=== PATIENT | female | born 1960 | race Caucasian/White ===

== ENCOUNTER 2019-03-02 09:10 | Inpatient (IN) | payer SELFPAY ==
[2019-03-02] VITALS (9 sets, daily range): BP systolic 111–149; BP diastolic 73–99; PULSE 82–105; RESP 18–20; TEMP 36.7–37.2; O2SAT 92–98; BMI 26.6
--- NOTE | 2019-03-02 10:56 | W.ED.SKABFB ---
HPI - Skin/Abscess/Foreign Bdy General: Chief complaint: Skin/Abscess/Foreign Body Stated complaint: Mass on back Time Seen by Provider: 03/02/19 10:56 Source: patient and family Mode of arrival: ambulatory Limitations: no limitations History of Present Illness: HPI narrative: Patient is a 58-year-old female who presents to ED today with a complaint of a possible spider bite on her back that she noticed approximately 3 days ago; patient states lesion has not been draining; she reports chills but no fevers; she has no other complaints currently; patient reports history of diabetes, asthma, hypertension; she has not been on medications for these conditions in over 3 years stating she has no PCP and cannot afford medications Associated symptoms: Reports chills; Deny fever(s), nausea or vomiting Review of Systems Const: Reports: chills; Denies: fever, body aches, fatigue or night sweats Eyes: Denies: change in vision or blurry vision Card: Denies: chest pain, palpitations, irregular heart rhythm, lightheadedness, syncope or shortness of breath on exertion Resp: Denies: shortness of breath, productive cough or pain on inspiration GI: Denies: abdominal pain, nausea, vomiting, heartburn/indigestion or diarrhea : Denies: painful urination Musc: Denies: neck pain, back pain or joint pain Skin/Breast: Reports: new lesion; Denies: rash PFSH ED PFSH: Statuses (acute, chronic, etc) shown below reflect problem list status as previously entered and may not be historically accurate Social History Smoking and tobacco status: current every day smoker Physical Exam Const: COMMON NORMALS: no apparent distress, oriented x3 and alert GENERAL APPEARANCE: cooperative HENMT: COMMON NORMALS: normocephalic, head/scalp atraumatic, external ears normal, EAC's normal, TM's normal bilaterally and external nose normal HEAD & SCALP: normal to inspection, normocephalic and atraumatic FACE & SINUS: normal facial exam NOSE: external nose normal EXTERNAL EAR: Yes external ears normal EXTERNAL AUDITORY CANAL: EAC's normal TYMPANIC MEMBRANE: TM's normal bilaterally MOUTH: oral and palatal mucosa normal THROAT: posterior oropharynx normal, tonsils normal and uvula midline Eye: COMMON NORMALS: PERRL and EOMs intact bilaterally PUPIL: Yes PERRL Neck/C-Spine: COMMON NORMALS: full ROM, no lymphadenopathy, supple and no meningeal signs Resp: COMMON NORMALS: normal respiratory effort, no retractions, no use of accessory muscles and clear to auscultation bilaterally AUSCULTATION: clear to auscultation bilaterally Cardio: COMMON NORMALS: regular rhythm RATE: tachycardic RHYTHM: regular rhythm GI: COMMON NORMALS: normal to inspection, nondistended, normoactive bowel sounds, soft to palpation, non-tender, no hepatosplenomegaly and no masses PALPATION: Yes soft and Yes no hepatosplenomegaly Back/Pelvis: COMMON NORMALS: thoracic and lumbar spine normal to inspection Extremity: COMMON NORMALS: normal to inspection GENERAL: Yes normal exam except as noted Neuro: COMMON NORMALS: oriented x3 SENSORIUM/ORIENTATION: Yes alert MENINGEAL SIGNS: Yes no meningeal signs Skin: NARRATIVE SKIN EXAM: pt with large soft ball sized erythematous hemorrhagic indurated lesion to L mid back Course Vital Signs: Vital signs: Vital Signs Temperature 98.0 F 03/02/19 09:40 Pulse Rate 98 03/02/19 13:01 Respiratory Rate 20 H 03/02/19 13:01 Blood Pressure 140/99 03/02/19 13:01 Pulse Oximetry 96 03/02/19 13:01 MDM - Skin/Abscess/Foreign Bdy MDM Narrative: Medical decision making narrative: pt tachycardic with a white count of over 22,000; she has large abscess/infection to her back that is not amendable to I&D based on her ultrasound; she is an uncontrolled diabetic with sugars over 400; she will need to come into the hospital for IV abx and blood sugar control; Dr. Hudson evaluated pt and spoke to Dr. Ledesma for admit Lab Data: Labs: Lab Results 03/02/19 03/02/19 03/02/19 Range/Units 11:10 11:10 11:10 WBC 22.2 H (4.0-10.0) 10^3/ uL RBC 5.41 H (4.1-5.3) 10^6/u L Hgb 15.6 H (11.5-15.3) g/dL Hct 46.0 (37.0-47.0) % MCV 85.0 (81-99) fL MCH 28.8 (28.0-34.0) pg MCHC 33.9 (30.0-36.0) g/dL RDW 11.4 L (12.1-15.1) % Plt Count 296 (130-400) 10^3/c mm MPV 10.7 H (7.4-10.4) fL Neut % (Auto) 86.4 % Lymph % (Auto) 6.5 % Twiggs % (Auto) 5.7 % Eos % (Auto) 0.5 % Baso % (Auto) 0.4 % Neut # (Auto) 19.2 H (1.8-7.7) 10^3/u L Lymph # (Auto) 1.4 (0.8-4.8) 10^3/u L Twiggs # (Auto) 1.3 H (0.2-0.9) 10^3/u L Eos # (Auto) 0.1 (0.0-0.8) 10^3/u L Baso # (Auto) 0.1 (0.0-0.1) 10^3/u L Nucleated RBC % (a uto) 0 % Nucleated RBCs # 0.0 /100WBC Sodium 126 L (136-145) mmol/L Potassium 4.5 (3.5-5.1) mmol/L Chloride 86 L (98-107) mmol/L Carbon Dioxide 27 (22-29) mmol/L Anion Gap 17.5 (5-19) BUN 10 (6-20) mg/dL Creatinine 0.9 (0.5-0.9) mg/dL GFR Calculation 64.5 L (90-130) mL/min Glucose 487 H (74-109) mg/dL Lactate 1.4 (0.5-2.2) mmol/L Calcium 10.9 H (8.6-10.0) mg/Dl Total Bilirubin 0.6 (0.15-1.2) mg/dL AST 8 (0-32) U/L ALT 11 (0-33) U/L Alkaline Phosphata se 209 H (35-105) IU/L Total Protein 9.0 H (6.6-8.7) g/dL Albumin 4.0 (3.5-5.2) g/dL Globulin 5.0 H (1.3-4.6) g/dL Serum Ketones (Negative) 03/02/19 Range/Units 11:10 WBC (4.0-10.0) 10^3/ uL RBC (4.1-5.3) 10^6/u L Hgb (11.5-15.3) g/dL Hct (37.0-47.0) % MCV (81-99) fL MCH (28.0-34.0) pg MCHC (30.0-36.0) g/dL RDW (12.1-15.1) % Plt Count (130-400) 10^3/c mm MPV (7.4-10.4) fL Neut % (Auto) % Lymph % (Auto) % Twiggs % (Auto) % Eos % (Auto) % Baso % (Auto) % Neut # (Auto) (1.8-7.7) 10^3/u L Lymph # (Auto) (0.8-4.8) 10^3/u L Twiggs # (Auto) (0.2-0.9) 10^3/u L Eos # (Auto) (0.0-0.8) 10^3/u L Baso # (Auto) (0.0-0.1) 10^3/u L Nucleated RBC % (a uto) % Nucleated RBCs # /100WBC Sodium (136-145) mmol/L Potassium (3.5-5.1) mmol/L Chloride (98-107) mmol/L Carbon Dioxide (22-29) mmol/L Anion Gap (5-19) BUN (6-20) mg/dL Creatinine (0.5-0.9) mg/dL GFR Calculation (90-130) mL/min Glucose (74-109) mg/dL Lactate (0.5-2.2) mmol/L Calcium (8.6-10.0) mg/Dl Total Bilirubin (0.15-1.2) mg/dL AST (0-32) U/L ALT (0-33) U/L Alkaline Phosphata se (35-105) IU/L Total Protein (6.6-8.7) g/dL Albumin (3.5-5.2) g/dL Globulin (1.3-4.6) g/dL Serum Ketones Negative (Negative) Discharge Plan Discharge Patient Disposition: Admitted As Inpatient Clinical Impression: Abscess of back Diabetes mellitus Qualifiers: Diabetes mellitus type: type 2 Diabetes mellitus half-way insulin use: without keno terminal operator use Condition: Stable Referrals: Cristóbal Resendiz MD [Family Provider] - Coding Level of Care Code ED Director [employer] for Chg Fwd Exam Problem Focused
--- NOTE | 2019-03-02 11:04 | US_ITS ---
WS: [id number] Subcutaneous ultrasound of the back, 03/02/2019 Clinical Data: back abscess Comparison: None. Findings: Only normal subcutaneous tissue could be seen over the left back. There is no evidence of an abscess. No cyst or mass was seen. US/US soft tissue/extremity [id number] Impression: Normal subcutaneous ultrasound of the back.
[2019-03-02 11:16] LABS: Basophils # 0.1 10^3/uL (0.0-0.1); Basophils % 0.4 %; Eosinophils # 0.1 10^3/uL (0.0-0.8); Eosinophils % 0.5 %; Hemoglobin 15.6 g/dL (11.5-15.3); Lymphocytes # 1.4 10^3/uL (0.8-4.8); Lymphocytes % 6.5 %; Mean Corpuscular HGB Conc 33.9 g/dL (30.0-36.0); Mean Corpuscular Hemoglobin 28.8 pg (28.0-34.0); Mean Platelet Volume 10.7 fL (7.4-10.4); Monocytes # 1.3 10^3/uL (0.2-0.9); Monocytes % 5.7 %; Neutrophils # 19.2 10^3/uL (1.8-7.7); Neutrophils % 86.4 %; Nucleated Red Blood Cells % 0 %; Platelet Count 296 10^3/cmm (130-400); Red Blood Count 5.41 10^6/uL (4.1-5.3); Red Cell Distribution Width 11.4 % (12.1-15.1); White Blood Count 22.2 10^3/uL (4.0-10.0)
[2019-03-02 11:32] LABS: Lactate (Lactic Acid level) 1.4 mmol/L (0.5-2.2)
[2019-03-02 11:33] LABS: Alanine Aminotransferase 11 U/L (0-33); Alkaline Phosphatase 209 IU/L (35-105); Anion Gap 17.5 (5-19); Aspartate Amino Transferase 8 U/L (0-32); Blood Urea Nitrogen 10 mg/dL (6-20); Calcium 10.9 mg/Dl (8.6-10.0); Carbon Dioxide 27 mmol/L (22-29); Chloride 86 mmol/L (98-107); Glomerular Filtration Rate 64.5 mL/min (90-130); Glucose 487 mg/dL (74-109); Potassium 4.5 mmol/L (3.5-5.1); Sodium 126 mmol/L (136-145); Total Bilirubin 0.6 mg/dL (0.15-1.2)
[2019-03-02] MEDS: vancomycin 1,000 MG in sodium chloride 0.9% 250 ML 250 MG IV ×2 (12:07→17:57)
[2019-03-02 12:08] LABS: Ketone (Acetest) Serum Negative (Negative)
[2019-03-02] MEDS: sodium chloride 0.9% 1,000 ML 999 ML IV (12:08)
[2019-03-02] MEDS: clindamycin 900 MG/50 ML PREMIX 100 MG IV (14:14)
[2019-03-02] MEDS: insulin nph human 100 units/1 mL 8 UNIT SUBCUT (14:38)
--- NOTE | 2019-03-02 15:54 | PM.HP ---
Providers/Chief Complaint Admitting Physician: Magda Ledesma MD Primary Care Provider: None Chief Complaint: Mass on back History of Present Illness Yessi Murry is a 58 year old female that presented to the emergency department due to a lesion on the left side of her back. Patient reported that the lesion developed over the past 3 to 4 days. She stated that she has had increasing pain and redness since that time. She stated that she has been unable to lie flat on her back due to the discomfort. She stated that the area has grown in size over the past 1 to 2 days. Patient reports that she has not had any recent care, has only been applying topical antibiotic cream. She denies being on any oral antibiotics recently. Patient noted that she does have diabetes and hypertension but she has not seen a primary care provider in 2 years and has not been on any medication for diabetes in over 3 years. She stated that she has not checked her blood sugars at home, does not have a glucometer. Patient was seen and evaluated in the emergency department noted to have concern for cellulitis and abscess and admitted for further evaluation and treatment. She was also noted to have severe hyperglycemia without DKA. Review of Systems Const: Reports: fever; Denies: chills Eyes: Denies: change in vision ENMT: Denies: nasal congestion Card: Denies: chest pain, palpitations or edema Resp: Denies: shortness of breath, productive cough or coughing up blood GI: Denies: abdominal pain, nausea, vomiting, diarrhea, constipation, blood in stool or black tarry stool : Denies: painful urination or blood in urine Musc: Denies: extremity pain or muscle cramps Skin/Breast: Reports: new lesion; Denies: rash Neuro: Denies: headache or dizziness Psych: Denies: anxiety or depression Endo: Denies: excessive urination or hot flashes Mendel/Lymph: Denies: easy bruising or easy bleeding Medications/Allergies Home Medications Medication Instructions Recorded Confirmed Last Taken Type No Known Home Medications 03/02/19 03/02/19 Unknown History Allergies Allergy/AdvReac Type Severity Reaction Status Date / Time No Known Allergies Allergy Verified 03/02/19 09:45 PFSH Acute PFSH: Statuses (acute, chronic, etc) shown below reflect problem list status as previously entered and may not be historically accurate Medical History (Updated 03/02/19 @ 16:04 by Magda Ledesma DO) Asthma (Chronic) Diabetes mellitus (Chronic) Hypertension (Chronic) Tobacco abuse (Chronic) Surgical History (Updated 03/02/19 @ 15:57 by Magda Ledesma DO) H/O section (Acute) 3 History of appendectomy (Acute) Family History (Updated 03/02/19 @ 15:57 by Magda Ledesma DO) Mother CAD (coronary artery disease) Diabetes Father Brain aneurysm Social History (Updated 03/02/19 @ 15:58 by Magda Ledesma DO) Smoking and tobacco status: current every day smoker Alcohol intake: never Substance/Drug Use: never Vitals/I&O/Wt Last Vital Signs Temp 98.0 F 03/02/19 09:40 Pulse 89 03/02/19 15:05 Resp 20 H 03/02/19 15:05 BP 149/92 03/02/19 15:05 Pulse Ox 96 03/02/19 15:05 03/02/19 03/02/19 03/02/19 06:59 14:59 22:59 Intake Total 1050 / 1050 Balance 1050 / 1050 Weight last 48 hrs Weight 59.874 kg Physical Exam Const: COMMON NORMALS: oriented x3 and alert GENERAL APPEARANCE: cooperative ORIENTATION/CONSCIOUSNESS: Yes awake, Yes oriented to person, Yes oriented to place and Yes oriented to time HENMT: COMMON NORMALS: normocephalic and head/scalp atraumatic HEAD & SCALP: normocephalic and atraumatic Eye: COMMON NORMALS: PERRL PUPIL: Yes PERRL Neck/C-Spine: COMMON NORMALS: supple GENERAL: Yes normal visual inspection Resp: COMMON NORMALS: normal respiratory effort and clear to auscultation bilaterally EFFORT & INSPECTION: Yes able to speak in complete sentences AUSCULTATION: clear to auscultation bilaterally, no rhonchi and no wheezes Cardio: COMMON NORMALS: regular rate, regular rhythm and no murmurs RATE: regular rate RHYTHM: regular rhythm GI: COMMON NORMALS: soft to palpation and non-tender INSPECTION: No abdominal distension AUSCULTATION: Yes normoactive bowel sounds PALPATION: Yes soft : COMMON NORMALS: Yes no CVA tenderness BLADDER/KIDNEY EXAM: Yes no CVA tenderness Back/Pelvis: COMMON NORMALS: no CVA tenderness Extremity: COMMON NORMALS: no clubbing, cyanosis or edema and no calf tenderness Neuro: COMMON NORMALS: oriented x3, CN's II-XII intact bilaterally, moves all extremities and no focal motor deficits SENSORIUM/ORIENTATION: Yes alert, Yes oriented to person, Yes oriented to place and Yes oriented to time SPEECH: speech normal Psych: COMMON NORMALS: mental status grossly normal and cooperative Skin: SKIN IMAGES (FEMALE): 1. Abscess/Cellulitis Data Micro: Micro: Microbiology 03/02/19 11:52 Blood Culture - Pr eliminary Blood SPECIMEN [facility] 03/02/19 11:10 Blood Culture - Pr eliminary Blood SPECIMEN [facility] Imaging^: US: I personally reviewed and interpreted this imaging study as follows: My impression: No identifiable abscess Radiologist's impression: Normal subcutaneous ultrasound of the back. A&P Assessment and plan (1) Diabetes mellitus: Uncontrolled type 2 diabetes mellitus Noncompliant with medications due to cost Blood glucose of [address] on sliding scale insulin and give aggressive IV fluids We will start on Lantus 10 units at bedtime and adjust accordingly representative phlebotomy services consult for assistance on insulin and primary care provider to be set up Status: Chronic Qualifiers: Diabetes mellitus longterm insulin use: without longterm use Diabetes mellitus type: type 2 Code(s): E11.9 - Type 2 diabetes mellitus without complications (2) Abscess of back: Started on clindamycin and vancomycin, will continue at this time No history of MRSA, will check MRSA nasal swab We will monitor response to treatment and if no improvement patient will likely need debridement by general surgery. Will monitor overnight and discuss with surgery tomorrow if indicated. Ultrasound performed does not show any identifiable abscess Status: Acute Code(s): L02.212 - Cutaneous abscess of back [any part, except buttock] (3) Hypertension: Will start on lisinopril 5 mg daily Status: Chronic Code(s): I10 - Essential (primary) hypertension (4) Asthma: Without acute exacerbation Status: Chronic Code(s): J45.909 - Unspecified asthma, uncomplicated (5) Tobacco abuse: Strongly encourage cessation Nicotine patch as needed Status: Chronic Code(s): Z72.0 - Tobacco use Attestations Medical Necessity Statement*: Patient requires hospitalization due to cellulitis with uncontrolled diabetes mellitus and severe hyperglycemia, expected stay greater than 2 midnights Coding Level of Care Code Acute Accredited Legal Secretary for Chg Fwd Diagnoses Diabetes mellitus E11.9 Diabetes mellitus intermodal owner operator truck driver insulin use: without longterm use Diabetes mellitus type: type 2 Abscess of back L02.212 Hypertension I10 Asthma J45.909 Tobacco abuse Z72.0
[2019-03-02] MEDS: enoxaparin 40 mg/0.4 mL Syringe SUBCUT (17:06)
[2019-03-02] MEDS: lisinopril 5 mg Tablet PO (17:07)
[2019-03-02] MEDS: sodium chloride 0.9% 1,000 ML 75 ML IV (17:07)
[2019-03-02 17:31] LABS: Glucose Point of Care 296 mg/dL (70-110)
[2019-03-02 21:07] LABS: Estmated Average Glucose 272; Hemoglobin A1C 11.1 % (4.0-6.0)
[2019-03-02 21:23] LABS: Glucose Point of Care 349 mg/dL (70-110)
[2019-03-02] MEDS: clindamycin 600 MG/50 ML PREMIX 100 MG IV (21:27)
[2019-03-02] MEDS: insulin glargine 100 units/1 mL 10 UNIT SUBCUT (21:27)
[2019-03-03] VITALS (7 sets, daily range): BP systolic 94–117; BP diastolic 62–75; PULSE 91–109; RESP 18–20; TEMP 36.7–37.3; O2SAT 91–100
[2019-03-03] MEDS: sodium chloride 0.9% 1,000 ML 75 ML IV ×2 (05:44→18:02)
[2019-03-03] MEDS: clindamycin 600 MG/50 ML PREMIX 200 MG IV ×3 (05:45→20:23)
[2019-03-03 05:57] LABS: Basophils # 0.1 10^3/uL (0.0-0.1); Basophils % 0.3 %; Eosinophils # 0.2 10^3/uL (0.0-0.8); Eosinophils % 1.3 %; Hematocrit 39.2 % (37.0-47.0); Hemoglobin 13.4 g/dL (11.5-15.3); Lymphocytes # 1.6 10^3/uL (0.8-4.8); Lymphocytes % 8.4 %; Mean Corpuscular HGB Conc 34.2 g/dL (30.0-36.0); Mean Corpuscular Hemoglobin 28.8 pg (28.0-34.0); Mean Corpuscular Volume 84.1 fL (81-99); Mean Platelet Volume 10.6 fL (7.4-10.4); Monocytes # 1.3 10^3/uL (0.2-0.9); Monocytes % 6.7 %; Neutrophils # 15.9 10^3/uL (1.8-7.7); Neutrophils % 82.6 %; Nucleated Red Blood Cells % 0 %; Platelet Count 267 10^3/cmm (130-400); Red Blood Count 4.66 10^6/uL (4.1-5.3); Red Cell Distribution Width 11.3 % (12.1-15.1); White Blood Count 19.2 10^3/uL (4.0-10.0)
[2019-03-03 06:11] LABS: Blood Urea Nitrogen 8 mg/dL (6-20); Calcium 9.1 mg/Dl (8.6-10.0); Carbon Dioxide 24 mmol/L (22-29); Chloride 96 mmol/L (98-107); Glomerular Filtration Rate 127.2 mL/min (90-130); Glucose 284 mg/dL (74-109); Sodium 130 mmol/L (136-145)
[2019-03-03 06:26] LABS: Glucose Point of Care 275 mg/dL (70-110)
[2019-03-03] MEDS: nicotine 21 mg Patch 1 PATCH TRANSDERMA (08:31)
[2019-03-03] MEDS: sodium chloride 0.9% 1,000 ML 100 ML IV (10:31)
--- NOTE | 2019-03-03 10:39 | PM.PN ---
Subjective Subjective: Interval history: Patient awake sitting up in bed at time of exam this morning. She reports continued pain in the left side of her back. Reported scant amount of drainage overnight. Vitals/I&O/Wt Last Vital Signs Temp 98.4 F 03/03/19 07:57 Pulse 103 H 03/03/19 07:57 Resp 20 H 03/03/19 07:57 BP 94/62 03/03/19 07:57 Pulse Ox 97 03/03/19 07:57 03/02/19 03/03/19 03/03/19 22:59 06:59 14:59 Intake Total 1793.750 / 1793.750 826.25 / 2620.000 240 / 240 Output Total 200 / 200 Balance 1793.750 / 1793.750 626.25 / 2420.000 240 / 240 Weight last 48 hrs Weight 59.874 kg Physical Exam Const: COMMON NORMALS: oriented x3 and alert GENERAL APPEARANCE: cooperative ORIENTATION/CONSCIOUSNESS: Yes awake, Yes oriented to person, Yes oriented to place and Yes oriented to time HENMT: COMMON NORMALS: normocephalic and head/scalp atraumatic HEAD & SCALP: normocephalic and atraumatic Eye: COMMON NORMALS: PERRL PUPIL: Yes PERRL Neck/C-Spine: COMMON NORMALS: supple Resp: COMMON NORMALS: normal respiratory effort and clear to auscultation bilaterally EFFORT & INSPECTION: Yes able to speak in complete sentences AUSCULTATION: clear to auscultation bilaterally, no rhonchi and no wheezes Cardio: COMMON NORMALS: regular rate, regular rhythm and no murmurs RATE: regular rate RHYTHM: regular rhythm GI: COMMON NORMALS: soft to palpation and non-tender INSPECTION: No abdominal distension AUSCULTATION: Yes normoactive bowel sounds PALPATION: Yes soft Extremity: COMMON NORMALS: no clubbing, cyanosis or edema and no calf tenderness Neuro: COMMON NORMALS: oriented x3, CN's II-XII intact bilaterally, moves all extremities and no focal motor deficits SENSORIUM/ORIENTATION: Yes alert, Yes oriented to person, Yes oriented to place and Yes oriented to time SPEECH: speech normal Psych: COMMON NORMALS: mental status grossly normal and cooperative Skin: NARRATIVE SKIN EXAM: Area of induration and erythema over the left flank with central pustule, no appreciable drainage upon palpation Data Micro: Micro: Microbiology 03/02/19 11:52 Blood Culture - Pr eliminary Blood Gram positive c occi 03/02/19 11:10 Blood Culture - Pr eliminary Blood SPECIMEN [facility] A&P Assessment and plan (1) Diabetes mellitus: Poorly controlled with blood glucose light greater than 400 on admission. Started on Lantus and will increase to 15 units today, continue on sliding scale insulin. A1c of 11.1 technical services manager consultation to get patient set up with a primary care provider Status: Chronic Qualifiers: Diabetes mellitus local intermodal truck driver insulin use: without local intermodal truck driver use Diabetes mellitus type: type 2 Diabetes mellitus complication status: with hyperglycemia Qualified Code(s): E11.65 - Type 2 diabetes mellitus with hyperglycemia Code(s): E11.9 - Type 2 diabetes mellitus without complications (2) Sepsis: Sepsis secondary to abscess and cellulitis of the left back. As evident by tachycardia, leukocytosis with a white blood cell count of 22,000 on admission Continue with IV fluids and IV antibiotics Status: Acute Qualifiers: Sepsis type: sepsis due to unspecified organism Code(s): A41.9 - Sepsis, unspecified organism (3) Abscess of back: Started on clindamycin and vancomycin, will continue at this time Discussed with general surgeon, Dr. Varela today. Appreciate recommendations and assistance in patient's care. Plan for incision and drainage of abscess today Status: Acute Code(s): L02.212 - Cutaneous abscess of back [any part, except buttock] (4) Hypertension: Decrease lisinopril to 2.5 mg daily Status: Chronic Qualifiers: Hypertension type: essential hypertension Qualified Code(s): I10 - Essential (primary) hypertension Code(s): I10 - Essential (primary) hypertension (5) Asthma: Without acute exacerbation Status: Chronic Qualifiers: Asthma severity: unspecified severity Code(s): J45.909 - Unspecified asthma, uncomplicated (6) Tobacco abuse: Strongly encourage cessation Nicotine patch as needed Status: Chronic Code(s): Z72.0 - Tobacco use Additional A&P Information Additional A&P Information: Positive blood culture returned today with 1 of 4 bottles gram-positive cocci in clusters, repeat blood cultures ordered and pending. Continue on current antibiotics. Attestations Medical Necessity Statement*: Patient requires further hospitalization due to poorly controlled diabetes, sepsis secondary to abscess on the left back and positive blood culture Coding Level of Care Code Acute Outsole Paraffiner for g Fwd Diagnoses Diabetes mellitus E11.65 Diabetes mellitus fci insulin use: without local intermodal truck driver use Diabetes mellitus type: type 2 Diabetes mellitus complication status: with hyperglycemia Sepsis A41.9 Sepsis type: sepsis due to unspecified organism Abscess of back L02.212 Hypertension I10 Hypertension type: essential hypertension Asthma J45.909 Asthma severity: unspecified severity Tobacco abuse Z72.0
[2019-03-03 11:43] LABS: Glucose Point of Care 249 mg/dL (70-110)
--- NOTE | 2019-03-03 16:44 | PM.CONSULT ---
Providers/Reason For Consult Consulting Physican/Specialty*: General Surgery Jason Varela MD Reason for Consult*: Cellulitis/abscess on back. Attending Physician: Magda Ledesma MD History of Present Illness History of Present Illness Yessi Murry is a 58 year old female who came into the hospital yesterday with a 4-day history of n worsening inflammatory area on her back. She says the first day she noticed this was last Saturday. It has been getting larger and more uncomfortable ever since. She says she has had both fevers and chills at home. She came to the hospital and an ultrasound revealed no obvious underlying abscess and so she has been on intravenous antibiotics. She does report that she had a boil in the past in her right axilla that drained spontaneously, but she has never had any other abscesses. Of note, the patient does have a history of diabetes and has not been on medication for several years. She does not check her blood sugars at home, either. She presented with a blood sugar near 500. Review of Systems Const: Reports: fever and chills Eyes: Denies: change in vision Card: Denies: chest pain Resp: Denies: shortness of breath GI: Denies: abdominal pain : Denies: difficulty urinating Musc: Reports: back pain (Associated with area of inflammation) Skin/Breast: Reports: redness (Cellulitis/abscess on back) Neuro: Reports: numbness in extremities (Feet secondary to diabetes) Psych: Denies: depression Mendel/Lymph: Denies: easy bleeding All/Imm: Reports: seasonal allergies Meds/Allergies Home Medications and Allergies Home Medications Medication Instructions Recorded Confirmed Type No Known Home Medications 03/02/19 03/02/19 History Allergies Allergy/AdvReac Type Severity Reaction Status Date / Time No Known Allergies Allergy Verified 03/02/19 09:45 Current Medications Current Medications Generic Name Dose Route Start Last Admin Trade Name Freq PRN Reason Stop Dose Admin Enoxaparin Sodium 40 mg 03/02/19 16:00 03/03/19 15:10 Lovenox SUBCUT Not Given Q24H DEEPTI Sodium Chloride 1,000 mls @ 100 mls/hr 03/02/19 14:15 03/03/19 10:31 Sodium Chloride 0.9% IV 100 mls/hr .Q10H DEEPTI Administration Vancomycin HCl 1,000 mg/ 250 mls @ 250 mls/hr 03/02/19 18:00 03/03/19 05:45 Sodium Chloride IV Infused Q24H DEEPTI Infusion Protocol Clindamycin HCl/Dextrose 600 mg in 50 mls @ 100 mls/hr 03/02/19 21:00 03/03/19 12:11 Cleocin IV 200 mls/hr Q8H DEEPTI Administration Protocol Sodium Chloride 1,000 mls @ 75 mls/hr 03/02/19 16:00 03/03/19 05:45 Sodium Chloride 0.9% IV 0 mls/hr .[id number] DEEPTI Infusion Insulin Aspart 0 unit 03/02/19 18:00 03/03/19 12:11 Novolog SUBCUT 6 unit TIDWM DEEPTI Administration Protocol Insulin Aspart 0 unit 03/02/19 21:00 03/02/19 21:27 Novolog SUBCUT 5 unit BEDTIME DEEPTI Administration Protocol Nicotine 1 patch 03/03/19 09:00 03/03/19 08:31 Nicoderm 21 Mg Patch TRANSDERMA 1 patch DAILY DEEPTI Administration PFSH Acute PFSH: Statuses (acute, chronic, etc) shown below reflect problem list status as previously entered and may not be historically accurate Medical History Asthma (Chronic) Diabetes mellitus (Chronic) Hypertension (Chronic) Tobacco abuse (Chronic) Surgical History (Updated 03/03/19 @ 16:50 by Jason Varela MD) H/O section (Acute) x 3 History of appendectomy (Acute) Family History (Updated 03/02/19 @ 15:57 by Magda Ledesma DO) Mother CAD (coronary artery disease) Diabetes Father Brain aneurysm Social History (Updated 03/03/19 @ 16:54 by Jason Varela MD) Smoking and tobacco status: current every day smoker cigarettes Alcohol intake: never Substance/Drug Use: never Vitals/I&O/Wt Last Vital Signs Temp 98.6 F 03/03/19 15:45 Pulse 93 03/03/19 15:45 Resp 18 03/03/19 15:45 BP 117/75 03/03/19 15:45 Pulse Ox 100 03/03/19 15:45 01/07/20 01/07/20 01/07/20 06:59 14:59 22:59 Intake Total 876.25 / 2670.000 240 / 240 Output Total 200 / 200 300 / 300 200 / 500 Balance 676.25 / 2470.000 -60 / -60 -200 / -260 Weight last 48 hrs Weight 132 lb Physical Exam Narrative: EXAM NARRATIVE: The patient was encountered in her hospital room. She is laying on her right side, and is in no acute distress. The pupils seem equal. No carotid bruits are heard. The lungs are clear. The heart is regular. The abdomen is mildly obese but is soft. The patient has a somewhat transverse, oval-shaped area of erythema and swelling on the mid aspect of her back to the left side. There are several small pustules overlying the skin but no ongoing drainage. There is a magic marker hans around the area that is at the edge of the erythema. The extremities reveal no edema. Neurologically the patient appears to be grossly intact. Data Micro: Micro: Microbiology 03/02/19 17:57 MRSA Culture - Fin al Nose 03/02/19 11:10 Blood Culture - Pr eliminary Blood NEGATIVE TO AMELIE E 03/03/19 10:42 Blood Culture - Pr eliminary Blood SPECIMEN [facility] UMESH 03/03/19 10:42 Blood Culture - Pr eliminary Blood SPECIMEN [facility] UMESH 03/02/19 11:52 Blood Culture - Pr eliminary Blood Gram positive c occi Other Data: Other data: Soft tissue ultrasound impression: Normal subcutaneous ultrasound of the back. A&P Additional A&P Information Additional A&P Information: Abscess on back. Despite the fact the ultrasound did not show an obvious collection of fluid, I do suspect the patient has a fluid collection underneath this area on exam. I discussed the situation with the patient in detail. She actually already ate a little bit of lunch today before nursing took her food away. I told her at this point, I would probably allow her to eat dinner and then we will plan on doing an incision and drainage procedure tomorrow morning. She is in agreement. Consult Attestations Medical Necessity Statement: See admitting service's notation. Coding Level of Care Code Acute Manager Basketball for Garrett Anderson
[2019-03-03 17:10] LABS: Glucose Point of Care 270 mg/dL (70-110)
[2019-03-03] MEDS: vancomycin 1,000 MG in sodium chloride 0.9% 250 ML 250 MG IV (18:01)
[2019-03-03] MEDS: acetaminophen 325 mg Tablet 650 MG PO (20:23)
[2019-03-03 21:18] LABS: Glucose Point of Care 306 mg/dL (70-110)
[2019-03-03] MEDS: insulin glargine 100 units/1 mL 15 UNIT SUBCUT (21:32)
[2019-03-04] VITALS (14 sets, daily range): BP systolic 109–166; BP diastolic 68–85; PULSE 84–99; RESP 16–20; TEMP 36.2–37.2; O2SAT 94–98
[2019-03-04] MEDS: clindamycin 600 MG/50 ML PREMIX 200 MG IV (05:29)
[2019-03-04] MEDS: sodium chloride 0.9% 1,000 ML 30 ML IV ×2 (05:30→07:35)
[2019-03-04 05:57] LABS: Basophils # 0.1 10^3/uL (0.0-0.1); Basophils % 0.3 %; Eosinophils # 0.5 10^3/uL (0.0-0.8); Eosinophils % 2.5 %; Hematocrit 37.7 % (37.0-47.0); Hemoglobin 12.7 g/dL (11.5-15.3); Lymphocytes # 1.5 10^3/uL (0.8-4.8); Lymphocytes % 8.5 %; Mean Corpuscular HGB Conc 33.7 g/dL (30.0-36.0); Mean Corpuscular Hemoglobin 28.9 pg (28.0-34.0); Mean Corpuscular Volume 85.9 fL (81-99); Mean Platelet Volume 10.4 fL (7.4-10.4); Monocytes # 1.3 10^3/uL (0.2-0.9); Neutrophils # 14.2 10^3/uL (1.8-7.7); Neutrophils % 80.1 %; Nucleated Red Blood Cells % 0 %; Platelet Count 252 10^3/cmm (130-400); Red Blood Count 4.39 10^6/uL (4.1-5.3); Red Cell Distribution Width 11.4 % (12.1-15.1); White Blood Count 17.8 10^3/uL (4.0-10.0)
--- NOTE | 2019-03-04 06:44 | PM.PN ---
Subjective Subjective: Interval history: The patient reports her abscess busted last night and drained some material. She says it is still uncomfortable. Vitals/I&O/Wt Last Vital Signs Temp 99.0 F 03/04/19 04:00 Pulse 89 03/04/19 04:00 Resp 18 03/04/19 04:00 BP 117/71 03/04/19 04:00 Pulse Ox 96 03/04/19 04:00 03/03/19 03/03/19 03/04/19 14:59 22:59 06:59 Intake Total 290 / 290 706.25 / 996.25 Output Total 300 / 300 820 / 1120 350 / 1470 Balance -10 / -10 -113.75 / -123.75 -350 / -473.75 Weight last 48 hrs Weight 127 lb 7 oz Weight 132 lb Physical Exam Narrative: EXAM NARRATIVE: The area of the abscess does have some thick purulent material on the outside. It is still very indurated and swollen. It would appear that this is not at all completely evacuated. Data Micro: Micro: Microbiology 03/02/19 17:57 MRSA Culture - Fin al Nose 03/02/19 11:10 Blood Culture - Pr eliminary Blood NEGATIVE TO AMELIE E 03/03/19 10:42 Blood Culture - Pr eliminary Blood SPECIMEN [facility] UMESH 03/03/19 10:42 Blood Culture - Pr eliminary Blood SPECIMEN [facility] UM[facility] 03/02/19 11:52 Blood Culture - Pr eliminary Blood Gram positive c occi A&P Additional A&P Information Additional A&P Information: Abscess on back. Despite the fact the ultrasound did not show an obvious collection of fluid, it is clear that there is a fluid collection under this that is not completely evacuated. To OR this morning. Attestations Medical Necessity Statement*: See admitting service's notation. Coding Level of Care Code Acute Development Specialist for Garrett Anderson
[2019-03-04 06:56] LABS: Glucose Point of Care 237 mg/dL (70-110)
--- NOTE | 2019-03-04 07:28 | ANES.PREANES ---
Pre-Anesthetic Assessment Pre-Anesthetic Assessment: Height/Weight: Height 1.5 m Weight 57.805 kg Temp Pulse Resp BP Pulse Ox 97.1 F L 85 18 133/70 94 03/04/19 07:21 03/04/19 07:21 03/04/19 04:00 03/04/19 07:21 03/04/19 07:21 Proposed Procedure: Operation Date: 03/04/19 07:40 Proposed Procedures p Incision And Drainage OF ABSCESS ON BACK(Not Applicable) - Jason Varela MD Meds/Allergies Current Medications: Current Medications Generic Name Dose Route Start Last Admin Trade Name Freq PRN Reason Stop Dose Admin Acetaminophen 650 mg 03/02/19 15:49 03/03/19 20:23 Tylenol PO 650 mg Q6H PRN Administration Mild/Mod Pain Or Temp >/= 101 Enoxaparin Sodium 40 mg 03/02/19 16:00 03/03/19 15:10 Lovenox SUBCUT Not Given Q24H DEEPTI Vancomycin HCl 1,0 00 mg/ 250 mls @ 250 mls /hr 03/02/19 18:00 03/03/19 18:01 Sodium Chloride IV 250 mls/hr Q24H DEEPTI Administration Protocol Clindamycin HCl/De xtrose 600 mg in 50 mls @ 100 mls/hr 03/02/19 21:00 03/04/19 05:29 Cleocin IV 200 mls/hr Q8H DEEPTI Administration Protocol Sodium Chloride 1,000 mls @ 75 ml s/hr 03/02/19 16:00 03/03/19 21:54 Sodium Chloride 0.9% IV 75 mls/hr .[id number] DEEPTI Infusion Sodium Chloride 1,000 mls @ 30 ml s/hr 03/04/19 06:00 03/04/19 07:12 Sodium Chloride 0.9% IV Infused .Q24H DEEPTI Infusion Insulin Aspart 0 unit 03/02/19 18:00 03/03/19 18:01 Novolog SUBCUT 10 unit TIDWM DEEPTI Administration Protocol Insulin Aspart 0 unit 03/02/19 21:00 03/03/19 21:31 Novolog SUBCUT 5 unit BEDTIME DEEPTI Administration Protocol Insulin Glargine 15 unit 03/03/19 21:00 03/03/19 21:32 Lantus SUBCUT 15 unit BEDTIME DEEPTI Administration Nicotine 1 patch 03/03/19 09:00 03/03/19 08:31 Nicoderm 21 Mg P atch TRANSDERMA 1 patch DAILY DEEPTI Administration PFSH Anesthesia PFSH: Medical History Asthma (Chronic) Diabetes mellitus (Chronic) Hypertension (Chronic) Tobacco abuse (Chronic) Surgical History (Updated 03/03/19 @ 16:50 by Jason Varela MD) H/O section (Acute) x 3 History of appendectomy (Acute) Family History (Updated 03/02/19 @ 15:57 by Magda Ledesma DO) Mother CAD (coronary artery disease) Diabetes Father Brain aneurysm Social History (Updated 03/03/19 @ 16:54 by Jason Vraela MD) Smoking and tobacco status: current every day smoker cigarettes Alcohol intake: never Substance/Drug Use: never Data Anesthesia Labs: Other Labs: Laboratory Results - last 48 hr 03/02/19 03/02/19 03/02/19 11:10 11:10 11:10 WBC 22.2 H RBC 5.41 H Hgb 15.6 H Hct 46.0 MCV 85.0 MCH 28.8 MCHC 33.9 RDW 11.4 L Plt Count 296 MPV 10.7 H Neut % (Auto) 86.4 Lymph % (Auto) 6.5 [place] % (Auto) 5.7 Eos % (Auto) 0.5 Baso % (Auto) 0.4 Neut # (Auto) 19.2 H Lymph # (Auto) 1.4 [place] # (Auto) 1.3 H Eos # (Auto) 0.1 Baso # (Auto) 0.1 Nucleated RBC % (a uto) 0 Nucleated RBCs # 0.0 Sodium 126 L Potassium 4.5 Chloride 86 L Carbon Dioxide 27 Anion Gap 17.5 BUN 10 Creatinine 0.9 GFR Calculation 64.5 L Glucose 487 H POC Glucose Estimat Average Gl ucose Hemoglobin A1c Lactate 1.4 Calcium 10.9 H Total Bilirubin 0.6 AST 8 ALT 11 Alkaline Phosphata se 209 H Total Protein 9.0 H Albumin 4.0 Globulin 5.0 H Serum Ketones 03/02/19 03/02/19 03/02/19 11:10 11:10 17:27 WBC RBC Hgb Hct MCV MCH MCHC RDW Plt Count MPV Neut % (Auto) Lymph % (Auto) [place] % (Auto) Eos % (Auto) Baso % (Auto) Neut # (Auto) Lymph # (Auto) [place] # (Auto) Eos # (Auto) Baso # (Auto) Nucleated RBC % (a uto) Nucleated RBCs # Sodium Potassium Chloride Carbon Dioxide Anion Gap BUN Creatinine GFR Calculation Glucose POC Glucose 296 Estimat Average Gl ucose 272 Hemoglobin A1c 11.1 H Lactate Calcium Total Bilirubin AST ALT Alkaline Phosphata se Total Protein Albumin Globulin Serum Ketones Negative 03/02/19 03/03/19 03/03/19 21:20 05:30 05:30 WBC 19.2 H RBC 4.66 Hgb 13.4 Hct 39.2 MCV 84.1 MCH 28.8 MCHC 34.2 RDW 11.3 L Plt Count 267 MPV 10.6 H Neut % (Auto) 82.6 Lymph % (Auto) 8.4 [place] % (Auto) 6.7 Eos % (Auto) 1.3 Baso % (Auto) 0.3 Neut # (Auto) 15.9 H Lymph # (Auto) 1.6 [place] # (Auto) 1.3 H Eos # (Auto) 0.2 Baso # (Auto) 0.1 Nucleated RBC % (a uto) 0 Nucleated RBCs # 0.0 Sodium 130 L Potassium 4.0 Chloride 96 L Carbon Dioxide 24 Anion Gap 14.0 BUN 8 Creatinine 0.5 GFR Calculation 127.2 Glucose 284 H POC Glucose 349 Estimat Average Gl ucose Hemoglobin A1c Lactate Calcium 9.1 Total Bilirubin AST ALT Alkaline Phosphata se Total Protein Albumin Globulin Serum Ketones 03/03/19 03/03/19 03/03/19 06:22 11:38 16:54 WBC RBC Hgb Hct MCV MCH MCHC RDW Plt Count MPV Neut % (Auto) Lymph % (Auto) [place] % (Auto) Eos % (Auto) Baso % (Auto) Neut # (Auto) Lymph # (Auto) [place] # (Auto) Eos # (Auto) Baso # (Auto) Nucleated RBC % (a uto) Nucleated RBCs # Sodium Potassium Chloride Carbon Dioxide Anion Gap BUN Creatinine GFR Calculation Glucose POC Glucose 275 249 270 Estimat Average Gl ucose Hemoglobin A1c Lactate Calcium Total Bilirubin AST ALT Alkaline Phosphata se Total Protein Albumin Globulin Serum Ketones 03/03/19 03/04/1920 21:07 05:33 06:47 WBC 17.8 H RBC 4.39 Hgb 12.7 Hct 37.7 MCV 85.9 MCH 28.9 MCHC 33.7 RDW 11.4 L Plt Count 252 MPV 10.4 Neut % (Auto) 80.1 Lymph % (Auto) 8.5 [place] % (Auto) 7.0 Eos % (Auto) 2.5 Baso % (Auto) 0.3 Neut # (Auto) 14.2 H Lymph # (Auto) 1.5 [place] # (Auto) 1.3 H Eos # (Auto) 0.5 Baso # (Auto) 0.1 Nucleated RBC % (a uto) 0 Nucleated RBCs # 0.0 Sodium Potassium Chloride Carbon Dioxide Anion Gap BUN Creatinine GFR Calculation Glucose POC Glucose 306 237 Estimat Average Gl ucose Hemoglobin A1c Lactate Calcium Total Bilirubin AST ALT Alkaline Phosphata se Total Protein Albumin Globulin Serum Ketones Micro: Micro: Microbiology 03/02/19 17:57 MRSA Culture - Fin al Nose 03/02/19 11:10 Blood Culture - Pr eliminary Blood NEGATIVE TO AMELIE E 03/03/19 10:42 Blood Culture - Pr eliminary Blood SPECIMEN [facility] UMESH 03/03/19 10:42 Blood Culture - Pr eliminary Blood SPECIMEN [facility] UMESH 03/02/19 11:52 Blood Culture - Pr eliminary Blood Gram positive c occi Cardiac Studies: No Data to Display
--- NOTE | 2019-03-04 07:33 | ANES.PREANES ---
Pre-Anesthetic Assessment Pre-Anesthetic Assessment: Height/Weight: Height 1.5 m Weight 57.805 kg Temp Pulse Resp BP Pulse Ox 97.1 F L 85 18 133/70 94 03/04/19 07:21 03/04/19 07:21 03/04/19 04:00 03/04/19 07:21 03/04/19 07:21 Proposed Procedure: Operation Date: 03/04/19 07:40 Proposed Procedures p Incision And Drainage OF ABSCESS ON BACK(Not Applicable) - Jason Varela MD Was Beta Cody taken within 24 hours: Yes Last Intake: 00:00 Social: Social History: Tobacco Exam: Pre-Anes Outpt Exam: alert, oriented x 3, clear to auscultation bilaterally and regular rate & rhythm Airway: Submandibular: WNL Cervical ROM: WNL MP: 2 Dentition: Chipped Additional comments: SEVERAL MISSING TEETH History/ROS: No significant history except as noted and No significant complaints Pulmonary: Pulmonary: Asthma, Cough, LE and SOB CV/HEM: CV/HEM: HTN : : None reported Hepatic: Hepatic: None reported GI: GI: GERD Metabolic: Metabolic: DM Musc/skel: Musc/skel: Lower Back Pain and OA/DJD Neuropsych: Neuropsych: Anxiety Anesthetic Plan: ASA status: III Anesthesia: MAC Risk of > 500 ml blood loss (7ml/kg in children): No Meds/Allergies Current Medications: Current Medications Generic Name Dose Route Start Last Admin Trade Name Freq PRN Reason Stop Dose Admin Acetaminophen 650 mg 03/02/19 15:49 03/03/19 20:23 Tylenol PO 650 mg Q6H PRN Administration Mild/Mod Pain Or Temp >/= 101 Enoxaparin Sodium 40 mg 03/02/19 16:00 03/03/19 15:10 Lovenox SUBCUT Not Given Q24H DEEPTI Vancomycin HCl 1,0 00 mg/ 250 mls @ 250 mls /hr 03/02/19 18:00 03/03/19 18:01 Sodium Chloride IV 250 mls/hr Q24H DEEPTI Administration Protocol Clindamycin HCl/De xtrose 600 mg in 50 mls @ 100 mls/hr 03/02/19 21:00 03/04/19 05:29 Cleocin IV 200 mls/hr Q8H DEEPTI Administration Protocol Sodium Chloride 1,000 mls @ 75 ml s/hr 03/02/19 16:00 03/03/19 21:54 Sodium Chloride 0.9% IV 75 mls/hr .[id number] DEEPTI Infusion Sodium Chloride 1,000 mls @ 30 ml s/hr 03/04/19 06:00 03/04/19 07:12 Sodium Chloride 0.9% IV Infused .Q24H DEEPTI Infusion Insulin Aspart 0 unit 03/02/19 18:00 03/03/19 18:01 Novolog SUBCUT 10 unit TIDWM DEEPTI Administration Protocol Insulin Aspart 0 unit 03/02/19 21:00 03/03/19 21:31 Novolog SUBCUT 5 unit BEDTIME DEEPTI Administration Protocol Insulin Glargine 15 unit 03/03/19 21:00 03/03/19 21:32 Lantus SUBCUT 15 unit BEDTIME DEEPTI Administration Nicotine 1 patch 03/03/19 09:00 03/03/19 08:31 Nicoderm 21 Mg P atch TRANSDERMA 1 patch DAILY DEEPTI Administration PFSH Anesthesia PFSH: Medical History Asthma (Chronic) Diabetes mellitus (Chronic) Hypertension (Chronic) Tobacco abuse (Chronic) Surgical History (Updated 03/03/19 @ 16:50 by Jason Varela MD) H/O section (Acute) x 3 History of appendectomy (Acute) Family History (Updated 03/02/19 @ 15:57 by Magda Ledesma DO) Mother CAD (coronary artery disease) Diabetes Father Brain aneurysm Social History (Updated 03/03/19 @ 16:54 by Jason Varela MD) Smoking and tobacco status: current every day smoker cigarettes Alcohol intake: never Substance/Drug Use: never Data Anesthesia Labs: Other Labs: Laboratory Results - last 48 hr 03/02/19 03/02/19 03/02/19 11:10 11:10 11:10 WBC 22.2 H RBC 5.41 H Hgb 15.6 H Hct 46.0 MCV 85.0 MCH 28.8 MCHC 33.9 RDW 11.4 L Plt Count 296 MPV 10.7 H Neut % (Auto) 86.4 Lymph % (Auto) 6.5 [place] % (Auto) 5.7 Eos % (Auto) 0.5 Baso % (Auto) 0.4 Neut # (Auto) 19.2 H Lymph # (Auto) 1.4 [place] # (Auto) 1.3 H Eos # (Auto) 0.1 Baso # (Auto) 0.1 Nucleated RBC % (a uto) 0 Nucleated RBCs # 0.0 Sodium 126 L Potassium 4.5 Chloride 86 L Carbon Dioxide 27 Anion Gap 17.5 BUN 10 Creatinine 0.9 GFR Calculation 64.5 L Glucose 487 H POC Glucose Estimat Average Gl ucose Hemoglobin A1c Lactate 1.4 Calcium 10.9 H Total Bilirubin 0.6 AST 8 ALT 11 Alkaline Phosphata se 209 H Total Protein 9.0 H Albumin 4.0 Globulin 5.0 H Serum Ketones 03/02/19 03/02/19 03/02/19 11:10 11:10 17:27 WBC RBC Hgb Hct MCV MCH MCHC RDW Plt Count MPV Neut % (Auto) Lymph % (Auto) [place] % (Auto) Eos % (Auto) Baso % (Auto) Neut # (Auto) Lymph # (Auto) [place] # (Auto) Eos # (Auto) Baso # (Auto) Nucleated RBC % (a uto) Nucleated RBCs # Sodium Potassium Chloride Carbon Dioxide Anion Gap BUN Creatinine GFR Calculation Glucose POC Glucose 296 Estimat Average Gl ucose 272 Hemoglobin A1c 11.1 H Lactate Calcium Total Bilirubin AST ALT Alkaline Phosphata se Total Protein Albumin Globulin Serum Ketones Negative 03/02/19 03/03/19 03/03/19 21:20 05:30 05:30 WBC 19.2 H RBC 4.66 Hgb 13.4 Hct 39.2 MCV 84.1 MCH 28.8 MCHC 34.2 RDW 11.3 L Plt Count 267 MPV 10.6 H Neut % (Auto) 82.6 Lymph % (Auto) 8.4 [place] % (Auto) 6.7 Eos % (Auto) 1.3 Baso % (Auto) 0.3 Neut # (Auto) 15.9 H Lymph # (Auto) 1.6 [place] # (Auto) 1.3 H Eos # (Auto) 0.2 Baso # (Auto) 0.1 Nucleated RBC % (a uto) 0 Nucleated RBCs # 0.0 Sodium 130 L Potassium 4.0 Chloride 96 L Carbon Dioxide 24 Anion Gap 14.0 BUN 8 Creatinine 0.5 GFR Calculation 127.2 Glucose 284 H POC Glucose 349 Estimat Average Gl ucose Hemoglobin A1c Lactate Calcium 9.1 Total Bilirubin AST ALT Alkaline Phosphata se Total Protein Albumin Globulin Serum Ketones 03/03/19 03/03/19 03/03/19 06:22 11:38 16:54 WBC RBC Hgb Hct MCV MCH MCHC RDW Plt Count MPV Neut % (Auto) Lymph % (Auto) [place] % (Auto) Eos % (Auto) Baso % (Auto) Neut # (Auto) Lymph # (Auto) [place] # (Auto) Eos # (Auto) Baso # (Auto) Nucleated RBC % (a uto) Nucleated RBCs # Sodium Potassium Chloride Carbon Dioxide Anion Gap BUN Creatinine GFR Calculation Glucose POC Glucose 275 249 270 Estimat Average Gl ucose Hemoglobin A1c Lactate Calcium Total Bilirubin AST ALT Alkaline Phosphata se Total Protein Albumin Globulin Serum Ketones 03/03/19 03/04/19 03/04/19 21:07 05:33 06:47 WBC 17.8 H RBC 4.39 Hgb 12.7 Hct 37.7 MCV 85.9 MCH 28.9 MCHC 33.7 RDW 11.4 L Plt Count 252 MPV 10.4 Neut % (Auto) 80.1 Lymph % (Auto) 8.5 [place] % (Auto) 7.0 Eos % (Auto) 2.5 Baso % (Auto) 0.3 Neut # (Auto) 14.2 H Lymph # (Auto) 1.5 [place] # (Auto) 1.3 H Eos # (Auto) 0.5 Baso # (Auto) 0.1 Nucleated RBC % (a uto) 0 Nucleated RBCs # 0.0 Sodium Potassium Chloride Carbon Dioxide Anion Gap BUN Creatinine GFR Calculation Glucose POC Glucose 306 237 Estimat Average Gl ucose Hemoglobin A1c Lactate Calcium Total Bilirubin AST ALT Alkaline Phosphata se Total Protein Albumin Globulin Serum Ketones Micro: Micro: Microbiology 03/02/19 17:57 MRSA Culture - Fin al Nose 03/02/19 11:10 Blood Culture - Pr eliminary Blood NEGATIVE TO AMELIE E 03/03/19 10:42 Blood Culture - Pr eliminary Blood SPECIMEN [facility] UMESH 03/03/19 10:42 Blood Culture - Pr eliminary Blood SPECIMEN [facility] UMESH 03/02/19 11:52 Blood Culture - Pr eliminary Blood Gram positive c occi Cardiac Studies: No Data to Display
--- NOTE | 2019-03-04 08:12 | P.OP_ITS ---
Operative Report Post-Operative Note: Date of procedure: 03/04/19 Preop Diagnosis: Abscess on back. Post-op Findings: Same. Procedure Done: Incision and drainage of abscess on back. Specimens removed/disposition: Aerobic and anaerobic cultures. Surgeon: Jason Varela Anesthesia: MAC Estimated blood loss (mL): 5 Complications: None. Condition: stable Disposition: same day (prior to being returned to the medical/surgical floor) Operative Report: Procedure: The patient was brought to the operating room and was placed in a right lateral decubitus position on the operating room table. A monitored anesthetic was induced. The back was prepped and draped in a sterile fashion. A combination of 1% lidocaine with 1 to 100,000 parts epinephrine and 0.5% bupivacaine was used for local anesthesia throughout the procedure. A slightly oblique incision was carried out over the oblong abscess cavity in the left mid back region. Immediately, purulent material was obtained and both aerobic and anaerobic cultures were sent. The abscess cavity was suctioned out and revealed approximately a 3 cm fairly deep abscess cavity with a little wider abscess cavity more superficially. The tissue was bluntly debrided with a 4 x 4 and then the wound was extensively irrigated with saline. The wound was eventually packed with and a secondary dressing was applied. Wet-to-dry gauze the patient was taken to the recovery area in stable condition postoperatively. Coding Level of Care Code Acute Principal Systems Engineer for Garrett Anderson
--- NOTE | 2019-03-04 10:43 | PM.DCS ---
Discharge Providers Date of Admission: 03/02/19 14:23 Date of Discharge: 03/04/19 Attending Provider at Admission: Magda Ledesma MD Attending Provider at Discharge: Magda Ledesma MD Diagnoses at Discharge Discharge Diagnosis (1) Diabetes mellitus: Status: Chronic Problem details: Patient has been non-compliant with medications due to cost. Discharged with Levemir 25 units daily and metformin to increase slowly due to GI side effects Qualifiers: Diabetes mellitus complication status: with hyperglycemia Diabetes mellitus penitentiary insulin use: without moth exterminator use Diabetes mellitus type: type 2 Qualified Code(s): E11.65 - Type 2 diabetes mellitus with hyperglycemia (2) Sepsis: Status: Acute Qualifiers: Sepsis type: sepsis due to unspecified organism (3) Abscess of back: Status: Acute Problem details: Status post incision and drainage on 03/04/2019 (4) Hypertension: Status: Chronic Problem details: Blood pressure within good range at this time, recommend outpatient follow-up and started on Lisinopril 2.5mg daily Qualifiers: Hypertension type: essential hypertension Qualified Code(s): I10 - Essential (primary) hypertension (5) Asthma: Status: Chronic Problem details: Without acute exacerbation, strongly encourage smoking cessation Qualifiers: Asthma severity: unspecified severity (6) Tobacco abuse: Status: Chronic Problem details: Strongly encourage smoking cessation Reason for Visit Reason for Visit: Reason For Visit: Mass on back Hospital Course Hospital Course: Patient was seen and evaluated in the emergency department due to a lesion on her back. Patient reported the lesion had been progressive over the past 3 to 4 days and increase in pain in size. Patient was noted to have large abscess on her back with surrounding cellulitis and admitted for further evaluation and treatment. She was noted to have sepsis with a white blood cell count of 22,000 and tachycardia. Patient was given IV fluids and IV antibiotics and ultimately general surgery was consulted for incision and drainage of abscess. Patient was taken to the OR on 03/04/2019 and had incision and drainage of 3 cm abscess on the left back without any further complications. After the procedure she reported that she was doing well and denied any concerns. She denied any chest pain or shortness of breath and was requesting discharge to home. Discussed with patient the recommendation to have close follow-up with primary care provider and also discussed recommendation for home insulin for better glucose control, she verbalized understanding and agreed with plan. Discharge Summary: Discharge to home with close follow-up with primary care provider in 3 to 5 days. Recommended to keep a blood glucose log to present to her primary care provider at that time Discharged home with clindamycin, oral antibiotic Continue with the dressing changes as recommended by surgery Physical Exam Const: COMMON NORMALS: oriented x3 and alert GENERAL APPEARANCE: cooperative ORIENTATION/CONSCIOUSNESS: Yes awake, Yes oriented to person, Yes oriented to place and Yes oriented to time HENMT: COMMON NORMALS: normocephalic and head/scalp atraumatic HEAD & SCALP: normocephalic and atraumatic Eye: COMMON NORMALS: PERRL PUPIL: Yes PERRL Neck/C-Spine: COMMON NORMALS: supple GENERAL: Yes normal visual inspection Resp: COMMON NORMALS: normal respiratory effort and clear to auscultation bilaterally EFFORT & INSPECTION: Yes able to speak in complete sentences AUSCULTATION: clear to auscultation bilaterally, no rhonchi and no wheezes Cardio: COMMON NORMALS: regular rate, regular rhythm and no murmurs RATE: regular rate RHYTHM: regular rhythm GI: COMMON NORMALS: soft to palpation and non-tender INSPECTION: No abdominal distension AUSCULTATION: Yes normoactive bowel sounds PALPATION: Yes soft Extremity: COMMON NORMALS: no clubbing, cyanosis or edema and no calf tenderness Neuro: COMMON NORMALS: oriented x3, CN's II-XII intact bilaterally, moves all extremities and no focal motor deficits SENSORIUM/ORIENTATION: Yes alert, Yes oriented to person, Yes oriented to place and Yes oriented to time SPEECH: speech normal Psych: COMMON NORMALS: mental status grossly normal and cooperative Skin: NARRATIVE SKIN EXAM: lesion on L back s/p I&D with improvement of erythema Discharge Data Data Completed and Pending: Completed Studies During Hospitalization Category Date Time Status US soft tissue/ex tremity 70990 Urge nt Ultrasound 03/02/19 11:04 Completed Pending at discharge Category Date Time Status Abscess Culture a nd Gram Stain Rout ine Lab 03/04/19 08:06 Received Anaerobic Culture Routine Lab 03/04/19 08:06 Received Blood Culture Sta t Lab 03/02/19 11:52 Results Blood Culture Sta t Lab 03/03/19 10:42 Results Vancomycin Trough Routine Lab 03/04/19 17:00 Ordered Labs from last 24 hours 03/04/19 03/04/19 03/03/19 06:47 05:33 21:07 WBC 17.8 H RBC 4.39 Hgb 12.7 Hct 37.7 MCV 85.9 MCH 28.9 MCHC 33.7 RDW 11.4 L Plt Count 252 MPV 10.4 Neut % (Auto) 80.1 Lymph % (Auto) 8.5 Moca % (Auto) 7.0 Eos % (Auto) 2.5 Baso % (Auto) 0.3 Neut # (Auto) 14.2 H Lymph # (Auto) 1.5 Moca # (Auto) 1.3 H Eos # (Auto) 0.5 Baso # (Auto) 0.1 Nucleated RBC % (a uto) 0 Nucleated RBCs # 0.0 POC Glucose 237 306 03/03/19 03/03/19 16:54 11:38 WBC RBC Hgb Hct MCV MCH MCHC RDW Plt Count MPV Neut % (Auto) Lymph % (Auto) Moca % (Auto) Eos % (Auto) Baso % (Auto) Neut # (Auto) Lymph # (Auto) Moca # (Auto) Eos # (Auto) Baso # (Auto) Nucleated RBC % (a uto) Nucleated RBCs # POC Glucose 270 249 Vitals: Last Vital Signs Temp 98.4 F 03/04/19 10:00 Pulse 88 03/04/19 10:00 Resp 20 H 03/04/19 10:00 BP 124/82 03/04/19 10:00 Pulse Ox 98 03/04/19 10:00 Discharge Plan Discharge Patient Disposition: Home, Self-Care Condition: Stable Prescriptions: New lisinopril 2.5 mg Tablet 2.5 mg PO DAILY 30 Days Qty: 30 RF: 0 acetaminophen 325 mg Tablet 650 mg PO Q6H PRN (Reason: Mild/Mod Pain Or Temp >/= 101) 5 Days Qty: 20 RF: 0 clindamycin HCl 300 mg capsule 300 mg PO TID 7 Days Qty: 21 RF: 0 metformin 500 mg tablet 500 mg PO BID Qty: 60 RF: 0 Levemir FlexTouch U-100 Insuln 100 unit/mL (3 mL) insulin pen 25 unit SUBCUT QPM Qty: 15 RF: 0 No Action No Known Home Medications RF: 0 Discharge Orders: Discharge Order (Routine); Ordered 03/04/19 Ordered By: Magda Ledesma Discharge Diet: Diabetic Discharge Activity: Increase activity as tolerated Patient Instructions: Acute Wound Care (DC) Activity Restrictions/Additional Instructions: Follow-up with primary care provider in 3 to 5 days to establish care and for care of diabetes mellitus Started on lisinopril 2.5 mg daily Started on Levemir 25 units at bedtime, continue to monitor your blood sugars and keep a glucose log to present to your primary care provider for further adjustment on your insulin requirements as needed Call your physician or present to the ER for any acute illness or concern Continue with twice daily dressing changes, keep area clean and dry. 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
[2019-03-04] MEDS: lisinopril 2.5 mg Tablet PO (11:48)
[2019-03-04] MEDS: nicotine 21 mg Patch 1 PATCH TRANSDERMA (11:48)
[2019-03-04 12:01] LABS: Glucose Point of Care 249 mg/dL (70-110)
--- NOTE | 2019-03-04 13:26 | PM.PACU ---
PACU note Post-Anesthesia Exam: awake Disposition: back to floor
--- NOTE | 2019-03-04 14:43 | PC.CHAP ---
Pastoral Care Encounter/Spiritual Assessment Type of Contact [] Declined wordpress developer visit [] Patient/Family/Request visit [] Outpatient visit [] Follow-up visit [] Physician referral [] Code/Alert [x] Routine visit [] Staff referral [] Actively dying [] Patient sleeping [] Family support [] [] Out of room [] Palliative care [] [] Receiving care in room [] Pre-surgical visit [] Trauma [] Long length of stay [] ICU visit [] Other: Relational/Emotional Strength [x] Patient feels connected with others/family/visitors/staff [] Distress [] Loneliness/isolation [] Abandonment Spirituality of Patient [x] Person of Shalini [] Attends Caodaism of their Shalini [x] Believes in Prayer [] Reads Bible or Anabaptism materials [] There are Spiritual issues to be addressed Shell Worker Interventions [x Prayer [x] Active listening [x Non-anxious presence [x] Spiritual/emotional support [] Crisis/trauma care [] Spiritual counseling [] Bereavement support [] Provided bereavement packet [] Provided Bible/devotional materials [] Provided toy/stuffed animal, coloring book to patient or family member [x] Completed spiritual assessment [] Provided Communion [] Anointing/[place] [] Salvation [] Other: Impact on Illness or Injury [] Angry [] Fearful [x] Anxious [] Often cries [] Exhaustion [] Unable to work [] Unable to attend buddhism [] Unable to walk/stand [] Unable to read [] Unable to drive [] Unable to eat/drink [] Unable to sleep [] Unable to be with family [] Other: Summary Time spent with patient
--- NOTE | 2019-03-04 14:51 | PC.CHAP ---
Pastoral Care Encounter/Spiritual Assessment Type of Contact [] Declined disability counselor visit [] Patient/Family/Request visit [] Outpatient visit [] Follow-up visit [] Physician referral [] Code/Alert [x] Routine visit [] Staff referral [] Actively dying [] Patient sleeping [] Family support [] [] Out of room [] Palliative care [] [] Receiving care in room [] Pre-surgical visit [] Trauma [] Long length of stay [] ICU visit [] Other: Relational/Emotional Strength [] Patient feels connected with others/family/visitors/staff [] Distress [] Loneliness/isolation [] Abandonment Spirituality of Patient [] Person of Shalini [] Attends Christian of their Shalini []x Believes in Prayer [] Reads Bible or Mormonism materials [] There are Spiritual issues to be addressed Customer Service Trainer Interventions [x] Prayer [x] Active listening [x] Non-anxious presence [x] Spiritual/emotional support [] Crisis/trauma care [] Spiritual counseling [] Bereavement support [] Provided bereavement packet [] Provided Bible/devotional materials [] Provided toy/stuffed animal, coloring book to patient or family member x] Completed spiritual assessment [] Provided Communion [] Anointing/[place] [] Salvation [] Other: Impact on Illness or Injury [] Angry [] Fearful [x] Anxious [] Often cries [] Exhaustion [] Unable to work [] Unable to attend temple [] Unable to walk/stand [] Unable to read [] Unable to drive [] Unable to eat/drink [] Unable to sleep [] Unable to be with family [] Other: Summary ready to go back to work Time spent with patient 6 min
--- NOTE | 2019-03-05 14:29 | ANE.PACU ---
 Inpatient post-anesthesia follow up: Airway intact: Yes Vital signs: Temperature 98.6 F Pulse Rate [Left R adial] 89 Pulse Rate 93 Respiratory Rate 20 Blood Pressure [Le ft Arm] 124/84 Blood Pressure 149/92 Pulse Oximetry 97 Oxygen Delivery Me thod [ Room Air Current Rate & Del mando] Oxygen Delivery Me thod Room Air Oxygen Flow Rate [ Current Rate 0 & Delivery] Fraction of Inspir ed Oxygen Hydration adequate: Yes Nausea and vomiting: No Mental status: Baseline
== END 2019-03-04 15:00 | disposition home or self-care (01) | DRG 854 ==
LOC: ER 13:43 → MEDSURG 14:26
PROVIDERS: Physician Assistant; Surgery; Admitting Provider Family Medicine; Emergency Provider Emergency Medicine; Family Provider Internal Medicine; Visit Provider Family Medicine
PROC: 0JB70ZZ Excision of Back Subcutaneous Tissue and Fascia, Open Approach (ICD-10-PCS; principal; 2019-03-04 07:30)
DX: A41.9 Sepsis, unspecified organism (principal); L02.212 Cutaneous abscess of back [any part, except buttock and flank]; I10 Essential (primary) hypertension; E11.65 Type 2 diabetes mellitus with hyperglycemia; Z79.4 Long term (current) use of insulin; F17.210 Nicotine dependence, cigarettes, uncomplicated; Z91.120 Patient's intentional underdosing of medication regimen due to financial hardship; J45.909 Unspecified asthma, uncomplicated
CPT/HCPCS: 36415; 36416; 76882; 80048; 80053; 82009; 82962; 83036; 83605; 85025; 87040; 87070; 87075; 87077; 87186; 87205; 87641; 96372; 99221; 99282; J1650; J1815; J2001; J2704; J3370; J3490; J7030; J7050

== ENCOUNTER → 2019-09-30 14:36 | Outpatient (BNVA) | payer SELFPAY | PROVIDERS: Family Provider Internal Medicine; Visit Provider Nurse Practitioner Family | DX: Z11.59 Encounter for screening for other viral diseases (principal) | CPT/HCPCS: 87635 ==

== ENCOUNTER 2020-01-31 08:07 | Emergency (ER) | payer SELFPAY ==
[2020-01-31 08:12] VITALS: BP 147/84; PULSE 104; RESP 18; TEMP 36.8; O2SAT 97; BMI 25.4
--- NOTE | 2020-01-31 08:19 | XRR_ITS ---
PROCEDURE INFORMATION: Exam: XR Abdomen, 1 View Exam date and time: 01/31/2020 8:42 AM Age: 59 years old Clinical indication: Abdominal pain; Other: Oneil flank pain TECHNIQUE: Imaging protocol: XR of the abdomen. Views: Frontal supine view of the abdomen. 1 View. COMPARISON: No relevant prior studies available. FINDINGS: Gastrointestinal tract: There is prominence of the amount of stool but otherwise the bowel gas pattern is unremarkable.. No bowel dilation. Intraperitoneal space: There is an ovoid calcification in the right upper quadrant which may be a porcelain gallbladder. Bones/joints: Unremarkable. XR/XR KUB [id number] IMPRESSION: 1. 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 2. Normal bowel gas pattern.
[2020-01-31 08:20] LABS: Glucose Point of Care 331 mg/dL (70-110)
--- NOTE | 2020-01-31 08:22 | XRR_ITS ---
PROCEDURE INFORMATION: Exam: XR Chest, 1 View Exam date and time: 01/31/2020 8:42 AM Age: 59 years old Clinical indication: Pain; Other: Below ribs; Additional info: Syncope TECHNIQUE: Imaging protocol: XR of the chest Views: 1 view. COMPARISON: CR Chest 2 views* [id number] 02/25/2017 12:51 PM FINDINGS: Lungs: Unremarkable. No consolidation. Pleural space: Unremarkable. No pleural effusion. No pneumothorax. Heart/Mediastinum: Unremarkable. No cardiomegaly. Bones/joints: Unremarkable. XR/XR chest 1V portable [id number] IMPRESSION: No acute findings.
--- NOTE | 2020-01-31 08:23 | ED_ITS ---
HPI - General Adult General: Chief complaint: General Medical Stated complaint: BILATERAL FLANK PAIN Time Seen by Provider: 01/31/20 08:11 Source: patient Mode of arrival: ambulatory Limitations: no limitations History of Present Illness: HPI narrative: Pleasant 59-year-old female patient presents to the emergency department with 2-day onset of bilateral flank pain. States was at [facility] yesterday at the time of onset. Reports cough, temperature 99.0 yesterday, not elevated today. She reports chills, denies nausea vomiting diarrhea. Denies exposure to Covid, previous negative Covid test completed October 2019. She is employed at [employer]. She denies heavy lifting, falls or trauma. Denies weakness of the extremities, reports daily intake of naproxen. States no longer taking insulin due to financial constraints. She does not check blood sugar at home. Onset (ago): day(s) (2) Location: back, left and right Radiation: flank Severity: moderate Severity scale (1-10): 5 Quality: aching and dull Pain Consistency: constant Exacerbating factors: movement Associated symptoms: Reports cough and fevers/chills; Deny chest pain, diaphoresis, dyspnea, headache(s), nausea, rash, palpitations, syncope or vomiting Treatments prior to arrival: NSAID Review of Systems General: Reports: 10 or more systems reviewed and unremarkable except in HPI and below Const: Denies: fever(s), chills or diaphoresis Eyes: Denies: blurry vision or eye redness ENMT: Denies: throat pain, hoarseness, dental pain, disequilibrium, nasal discharge, nasal congestion or post nasal drip Card: Denies: chest pain, palpitations, irregular heart rhythm, edema, swelling of feet/ankles, syncope, dyspnea on exertion or orthopnea Resp: Reports: non-productive cough; Denies: dyspnea, productive cough, wheezing or chest congestion GI: Denies: abdominal pain, nausea, vomiting, dysphagia, diarrhea or constipation : Denies: difficulty voiding or dysuria Musc: Reports: back pain; Denies: neck pain, extremity swelling, muscle cramps or muscle weakness Skin/Breast: Denies: rash or pruritus Neuro: Denies: headache(s), weakness in extremities or behavioral changes Psych: Denies: anxiety, depression or change in appetite Mendel/Lymph: Denies: easy bruising PFSH ED PFSH: Medical History (Updated 01/31/20 @ 11:54 by OMAYRA Mg) Asthma Without acute exacerbation, strongly encourage smoking cessation Diabetes mellitus Patient has been non-compliant with medications due to cost. Discharged with Levemir 25 units daily and metformin to increase slowly due to GI side effects Hypertension Blood pressure within good range at this time, recommend outpatient follow-up and started on Lisinopril 2.5mg daily Tobacco abuse Strongly encourage smoking cessation Surgical History (Updated 03/03/19 @ 16:50 by Jason Varela MD) H/O section x 3 History of appendectomy Family History (Updated 03/02/19 @ 15:57 by Magda Ledesma DO) Mother CAD (coronary artery disease) Diabetes Father Brain aneurysm Social History (Updated 03/03/19 @ 16:54 by Jason Varela MD) Smoking and tobacco status: current every day smoker cigarettes [ Other cigarette details: 1 pack/day for 20 years ] Alcohol intake: never Physical Exam Const: COMMON NORMALS: no acute distress, patient oriented x3, healthy appearing, alert and well nourished EXAM LIMITATIONS: no altered mental status GENERAL APPEARANCE: cooperative, comfortable, well kempt and well hydrated NUTRITIONAL APPEARANCE: overweight ORIENTATION/CONSCIOUSNESS: Yes awake, Yes oriented to person, Yes oriented to place and Yes oriented to time HENMT: COMMON NORMALS: normocephalic, EAC's normal, Normal external nose present and moist oral mucous membranes HEAD & SCALP: normocephalic FACE & SINUS: normal facial exam, sinuses nontender and face symmetric NOSE: Normal external nose present EXTERNAL AUDITORY CANAL: EAC's normal MOUTH: Normal oral and palatal mucosa present THROAT: posterior oropharynx normal Eye: COMMON NORMALS: Equal, round and reactive pupils present and EOMs intact bilaterally GENERAL EYE: appearance normal, both eyes and all related structures PUPIL: Yes Equal, round and reactive pupils present Neck/C-Spine: COMMON NORMALS: full ROM and no lymphadenopathy GENERAL: Yes normal visual inspection and Yes trachea midline CERVICAL SPINE: Yes cervical ROM normal Lymph: LYMPHATIC: no lymphadenopathy noted Chest: COMMONS NORMALS: normal inspection of the chest and normal palpation of entire chest wall CHEST: No localized rib tenderness with anteroposterior compression Resp: COMMON NORMALS: normal respiratory effort, No retractions, No use of accessory muscles and clear to auscultation bilaterally EFFORT & INSPECTION: Yes able to speak in complete sentences, Yes symmetric chest movement, No decreased respiratory effort and No paradoxical thoraco-abdominal movements AUSCULTATION: clear to auscultation bilaterally and lung sounds not diminished Cardio: COMMON NORMALS: regular rate, regular rhythm, S1 normal heart sound present, S2 normal heart sound present and Peripheral pulses 2+ throughout RATE: regular rate RHYTHM: regular rhythm HEART SOUNDS: S1 normal heart sound present and S2 normal heart sound present PERIPHERAL PULSES: Peripheral pulses 2+ throughout GI: COMMON NORMALS: Normal to inspection, nondistended, normoactive bowel sounds present, Soft to palpation and non-tender INSPECTION: Yes normal to inspection, No abdominal wall ecchymosis, No Abdominal wall edema, No abdominal distension and Yes central obesity AUSCULTATION: Yes normoactive bowel sounds PALPATION: Yes Soft to palpation and No Firmness to palpation present (GI) : EXTERNAL FEMALE EXAM: No Inguinal lymphadenopathy, Yes erythema (left labia), Yes externally tender (left labia), Yes external swelling (left labia) and No External ecchymosis (female) Back/Pelvis: COMMON NORMALS: thoracic and lumbar spine normal to inspection, no thoracic nor lumbar tenderness, thoraco-lumbar ROM normal and straight leg raise negative bilaterally GENERAL BACK: Yes CVA tenderness CVA tenderness: bilateral THORACIC SPINE/UPPER BACK: No paraspinal muscle tenderness and No p araspinal muscle spasm LUMBAR SPINE/LOWER BACK: No paraspinal muscle tenderness and No paraspinal muscle spasm Extremity: COMMON NORMALS: normal to inspection and capillary refill normal GENERAL: Yes normal exam except as noted Neuro: COMMON NORMALS: patient oriented x3 and no focal motor deficits SENSORIUM/ORIENTATION: Yes alert, Yes oriented to person, Yes oriented to place and Yes oriented to time SPEECH: speech normal GAIT: Yes Normal gait present MOTOR EXAM: 5/5 motor strength present throughout Psych: COMMON NORMALS: mental status grossly normal, Normal thought process present and cooperative APPEARANCE: Yes well kempt ACTIVITY/MOTOR BEHAVIOR: Yes appropriate eye contact THOUGHT PROCESS: Normal thought process present Skin: COMMON NORMALS: no rashes or lesions noted and turgor normal GENERAL SKIN EXAM: no rashes or lesions noted and turgor normal Course ED course: 59-year-old female patient presents to the emergency department with 2-day onset of flank pain. Urinary tract infection present upon today's findings, questioned stone versus pelvic calcification on x-ray KUB, CT renal stone protocol completed to ensure patient did not have stone, hydronephrosis. Elevated white blood count appreciated, CT scan did reveal infiltration of the subcutaneous fat and enlargement of the left labia which may represent a cellulitis. Examination did reveal left labial enlargement with erythema, negative fluctuation suggestive of cellulitis appreciated, patient reports 8 years longstanding history of such findings that spontaneously resolve. Advised for her to follow-up this week with Dr. Resendiz without fail. I also discussed with her need for insulin therapy due to infection and glucosurea. I have prescribed insulin for her that she may obtain medication at a discounted rate. Agrees to return to the emergency department if she develops nausea vomiting despite use of Zofran. She is denied nausea vomiting upon exam today. Vital Signs: Vital signs: Vital Signs Temperature 98.3 F 01/31/20 08:12 Pulse Rate 96 01/31/20 11:07 Respiratory Rate 18 01/31/20 11:07 Blood Pressure 132/81 01/31/20 11:07 Pulse Oximetry 97 01/31/20 11:07 MDM - General Adult Lab Data: Labs: Lab Results 01/31/20 01/31/20 01/31/20 Range/Units 08:18 08:32 08:32 WBC 19.5 H (4.0-10.0) 10^3/ uL RBC 5.53 H (4.1-5.3) 10^6/u L Hgb 16.2 H (11.5-15.3) g/dL Hct 46.9 (37.0-47.0) % MCV 84.8 (81-99) fL MCH 29.3 (28.0-34.0) pg MCHC 34.5 (30.0-36.0) g/dL RDW 11.3 L (12.1-15.1) % Plt Count 270 (130-400) 10^3/c mm MPV 10.6 H (7.4-10.4) fL Neut % (Auto) 83.1 % Lymph % (Auto) 9.9 % [place] % (Auto) 5.8 % Eos % (Auto) 0.6 % Baso % (Auto) 0.3 % Neut # (Auto) 16.21 H (1.8-7.7) 10^3/u L Lymph # (Auto) 1.9 (0.8-4.8) 10^3/u L [place] # (Auto) 1.1 H (0.2-0.9) 10^3/u L Eos # (Auto) 0.1 (0.0-0.8) 10^3/u L Baso # (Auto) 0.1 (0.0-0.1) 10^3/u L Nucleated RBC % (a uto) 0 % Nucleated RBCs # 0.0 /100WBC Sodium 132 L (136-145) mmol/L Potassium 4.3 (3.5-5.1) mmol/L Chloride 97 L (98-107) mmol/L Carbon Dioxide 25 (22-29) mmol/L Anion Gap 14.3 (5-19) BUN 10 (6-20) mg/dL Creatinine 0.6 (0.5-0.9) mg/dL GFR Calculation 102.7 (90-130) mL/min Glucose 336 H (65-115) mg/dL POC Glucose 331 (70-110) mg/dL Calculated Osmolal ity 286 (285-295) mOsm/k g Calcium 9.7 (8.5-10.5) mg/dL Total Bilirubin 0.7 (0.15-1.2) mg/dL AST 9 (0-32) U/L ALT 14 (0-33) U/L Alkaline Phosphata se 143 H (35-105) IU/L Total Protein 7.9 (6.6-8.7) g/dL Albumin 4.0 (3.5-5.2) g/dL Globulin 3.9 (1.3-4.6) g/dL Lipase 20 (13-60) U/L Urine Color (Yellow) Urine Appearance (CLEAR) Urine pH (5-7) Ur Specific Gravit y (1.005-1.030) Urine Protein (Negative) Urine Glucose (UA) (Normal) Urine Ketones (Negative) Urine Blood (Negative) Urine Nitrate (Negative) Urine Bilirubin (Negative) Urine Urobilinogen (Negative) mg/dL Ur Leukocyte Kary ase (Negative) Urine RBC (0-2) /hpf Urine WBC (0-5) /hpf Ur Squamous Epith Cells (0-5) /hpf Ur Transition Epit h Cell /hpf Amorphous Sediment Urine Bacteria (NONE) /hpf Urine Mucus /hpf 01/31/20 Range/Units 08:32 WBC (4.0-10.0) 10^3/ uL RBC (4.1-5.3) 10^6/u L Hgb (11.5-15.3) g/dL Hct (37.0-47.0) % MCV (81-99) fL MCH (28.0-34.0) pg MCHC (30.0-36.0) g/dL RDW (12.1-15.1) % Plt Count (130-400) 10^3/c mm MPV (7.4-10.4) fL Neut % (Auto) % Lymph % (Auto) % [place] % (Auto) % Eos % (Auto) % Baso % (Auto) % Neut # (Auto) (1.8-7.7) 10^3/u L Lymph # (Auto) (0.8-4.8) 10^3/u L [place] # (Auto) (0.2-0.9) 10^3/u L Eos # (Auto) (0.0-0.8) 10^3/u L Baso # (Auto) (0.0-0.1) 10^3/u L Nucleated RBC % (a uto) % Nucleated RBCs # /100WBC Sodium (136-145) mmol/L Potassium (3.5-5.1) mmol/L Chloride (98-107) mmol/L Carbon Dioxide (22-29) mmol/L Anion Gap (5-19) BUN (6-20) mg/dL Creatinine (0.5-0.9) mg/dL GFR Calculation (90-130) mL/min Glucose (65-115) mg/dL POC Glucose (70-110) mg/dL Calculated Osmolal ity (285-295) mOsm/k g Calcium (8.5-10.5) mg/dL Total Bilirubin (0.15-1.2) mg/dL AST (0-32) U/L ALT (0-33) U/L Alkaline Phosphata se (35-105) IU/L Total Protein (6.6-8.7) g/dL Albumin (3.5-5.2) g/dL Globulin (1.3-4.6) g/dL Lipase (13-60) U/L Urine Color Yellow (Yellow) Urine Appearance Hazy A (CLEAR) Urine pH 5 (5-7) Ur Specific Gravit y 1.020 (1.005-1.030) Urine Protein Neg (Negative) Urine Glucose (UA) 4+ H (Normal) Urine Ketones 1+ H (Negative) Urine Blood 2+ H (Negative) Urine Nitrate Negative (Negative) Urine Bilirubin Neg (Negative) Urine Urobilinogen 1 H (Negative) mg/dL Ur Leukocyte Kary ase 2+ H (Negative) Urine RBC 15-25 H (0-2) /hpf Urine WBC 40-55 H (0-5) /hpf Ur Squamous Epith Cells 15-25 H (0-5) /hpf Ur Transition Epit h Cell 5-10 /hpf Amorphous Sediment Not Reportable Urine Bacteria 2+ H (NONE) /hpf Urine Mucus 2+ /hpf Imaging Data^: CT Abd/Pel: Radiologist's impression: [address] [address] [address] Scan Report Signed Patient: Yessi Murry Unit #: [id number] : 1960 Age/Sex: 59 / F ADM Date: 01/31/20 Loc: ER Room/Bed: Attending Dr: Ordering Provider/Ordering MD: iAda Hallman Date of Service: 01/31/20 Procedure(s): CT kidney stone 12840 Accession Number(s): [id number] Report Number: [id number] PROCEDURE INFORMATION: Exam: CT Abdomen And Pelvis Without Contrast Exam date and time: 01/31/2020 10:33 AM Age: 59 years old Clinical indication: Abdominal pain; Other: Blil flank pain; Additional info: Bilat flank pain, calculus RT TECHNIQUE: Imaging protocol: Computed tomography of the abdomen and pelvis without contrast. Radiation optimization: All CT scans at this facility use at least one of these dose optimization techniques: automated exposure control; mA and/or kV adjustment per patient size (includes targeted exams where dose is matched to clinical indication); or iterative reconstruction. COMPARISON: CR (ABDOMEN, ) 01/31/2020 8:41 AM RADIATION DOSE METRICS: Total DLP (mGy-cm): 735.72 FINDINGS: Liver: Normal. No mass. Gallbladder and bile ducts: There is a porcelain gallbladder. Multiple calcified stones are present in the gallbladder. The bile ducts are not dilated. Pancreas: Normal. No ductal dilation. Spleen: Normal. No splenomegaly. Adrenal glands: Normal. No mass. Kidneys and ureters: The kidneys are unremarkable with no hydronephrosis or renal stone. Stomach and bowel: Unremarkable. No obstruction. No mucosal thickening. Appendix: No evidence of appendicitis. Intraperitoneal space: Unremarkable. No free air. No significant fluid collection. Vasculature: There is calcification in the aorta and iliac arteries but there is no aneurysm. Lymph nodes: Unremarkable. No enlarged lymph nodes. Urinary bladder: Unremarkable as visualized. Reproductive: Unremarkable as visualized. Bones/joints: There is bilateral L5 spondylolysis with grade 1 spondylolisthesis at L5-S1. Degenerative changes are present in the lower lumbar facet joints with narrowing and hypertrophy.. Soft tissues: There is hazy infiltration with enlargement of the left labia. This may represent a cellulitis. No discrete fluid collection or subcutaneous emphysema is seen. Correlation with physical examination is advised. CT/CT kidney stone [id number] IMPRESSION: 1. There is is infiltration of the subcutaneous fat and enlargement of the left labia which may represent a cellulitis. No definite fluid collection is seen. Correlation with physical examination is advised. 2. Porcelain gallbladder, cholelithiasis. 3. No evidence of renal stone disease. 4. Bilateral L5 spondylolysis with grade 1 spondylolisthesis and degenerative changes in the facet joints. Radiation Dose CTDIVOL = (mGy): DLP = 735.72 (mGy-cm) Dictated By: Chris Carey Signed By: Chris Carey Signed Date/Time: 01/31/20 1139 DD/ 1138 Discharge Plan Discharge Patient Disposition: Home Clinical Impression: UTI (urinary tract infection) Qualifiers: Urinary tract infection type: acute cystitis Hematuria presence: with hematuria Qualified Code(s): N30.01 - Acute cystitis with hematuria Diabetes mellitus Qualifiers: Diabetes mellitus type: type 2 Diabetes mellitus local intermodal truck driver insulin use: with local intermodal truck driver use Diabetes mellitus complication status: without complication Qualified Code(s): E11.9 - Type 2 diabetes mellitus without complications Cellulitis Qualifiers: Site of cellulitis: other site Qualified Code(s): L03.818 - Cellulitis of other sites Condition: Stable Prescriptions: New Zofran 4 mg tablet 4 mg PO Q4H Qty: 10 RF: 0 cefdinir 300 mg capsule 300 mg PO BID 10 Days Qty: 20 RF: 0 Continued metformin 500 mg tablet 500 mg PO BID@0900,1800 RF: 0 Changed Levemir FlexTouch U-100 Insuln 100 unit/mL (3 mL) insulin pen 25 unit SUBCUT QPM@2000 Qty: 9 RF: 0 Discharge Orders: Discharge ED (Routine); Ordered 01/31/20 Ordered By: Aida Hallman Referrals: Cristóbal Resendiz MD [Family Provider] - Discharge Diet: Diabetic Discharge Activity: Resume usual activity Patient Instructions: Urinary Tract Infection in Women (ED), Cellulitis (ED), Diabetes Mellitus Type 2 in Adults (ED), Diabetic Hyperglycemia (ED) Coding Level of Care Code ED Band Sewer for Garrett Fwd Exam Comprehensive
[2020-01-31 08:38] VITALS: BP 141/80; PULSE 98; RESP 18; O2SAT 96
[2020-01-31 08:42] LABS: Basophils # 0.1 10^3/uL (0.0-0.1); Basophils % 0.3 %; Eosinophils # 0.1 10^3/uL (0.0-0.8); Eosinophils % 0.6 %; Hematocrit 46.9 % (37.0-47.0); Hemoglobin 16.2 g/dL (11.5-15.3); Lymphocytes # 1.9 10^3/uL (0.8-4.8); Lymphocytes % 9.9 %; Mean Corpuscular HGB Conc 34.5 g/dL (30.0-36.0); Mean Corpuscular Hemoglobin 29.3 pg (28.0-34.0); Mean Corpuscular Volume 84.8 fL (81-99); Mean Platelet Volume 10.6 fL (7.4-10.4); Monocytes # 1.1 10^3/uL (0.2-0.9); Monocytes % 5.8 %; Neutrophils # 16.21 10^3/uL (1.8-7.7); Neutrophils % 83.1 %; Nucleated Red Blood Cells % 0 %; Platelet Count 270 10^3/cmm (130-400); Red Blood Count 5.53 10^6/uL (4.1-5.3); Red Cell Distribution Width 11.3 % (12.1-15.1); White Blood Count 19.5 10^3/uL (4.0-10.0)
[2020-01-31 09:10] LABS: Alanine Aminotransferase 14 U/L (0-33); Alkaline Phosphatase 143 IU/L (35-105); Anion Gap 14.3 (5-19); Aspartate Amino Transferase 9 U/L (0-32); Blood Urea Nitrogen 10 mg/dL (6-20); Calcium 9.7 mg/dL (8.5-10.5); Carbon Dioxide 25 mmol/L (22-29); Chloride 97 mmol/L (98-107); Globulin 3.9 g/dL (1.3-4.6); Glomerular Filtration Rate 102.7 mL/min (90-130); Glucose 336 mg/dL (65-115); Lipase 20 U/L (13-60); Osmolality Calculated 286 mOsm/kg (285-295); Potassium 4.3 mmol/L (3.5-5.1); Sodium 132 mmol/L (136-145); Total Bilirubin 0.7 mg/dL (0.15-1.2); Total Protein 7.9 g/dL (6.6-8.7)
[2020-01-31 09:16] LABS: Add Urine Microscopic? YES; Bilirubin Urine Neg (Negative); Blood Urine 2+ (Negative); Glucose Urine UA 4+ (Normal); Ketones Urine 1+ (Negative); Leukocyte Esterase Urine 2+ (Negative); Nitrate Urine Negative (Negative); Protein Urine Neg (Negative); Urine Appearance Hazy (CLEAR); Urine Color Yellow (Yellow); Urobilinogen Urine 1 mg/dL (Negative); pH Urine 5 (5-7)
[2020-01-31 09:17] LABS: WBC Urine 40-55 /hpf (0-5)
[2020-01-31 09:18] LABS: Bacteria Urine 2+ /hpf; Mucus Urine 2+ /hpf; RBC Urine 15-25 /hpf (0-2); Squamous Epithelial Cell Urine 15-25 /hpf (0-5)
[2020-01-31 09:19] LABS: Add Urine Culture? No
[2020-01-31] MEDS: cefTRIAXone 1,000 MG in sodium chloride 0.9% (plus) 50 ML 100 MG IV (09:50)
[2020-01-31] MEDS: sodium chloride 0.9% 500 ML 999 ML IV (09:50)
[2020-01-31 09:53] VITALS: BP 116/61; PULSE 93; RESP 20; O2SAT 96
--- NOTE | 2020-01-31 09:54 | PC.NURSE ---
Resting in bed on L side. Infusing Rx and fluids. No acute distress. Daughter at bedside.
[2020-01-31 10:00] VITALS: BP 132/81; PULSE 96; RESP 18; O2SAT 97
--- NOTE | 2020-01-31 10:25 | CTR_ITS ---
PROCEDURE INFORMATION: Exam: CT Abdomen And Pelvis Without Contrast Exam date and time: 01/31/2020 10:33 AM Age: 59 years old Clinical indication: Abdominal pain; Other: Blil flank pain; Additional info: Bilat flank pain, calculus RT TECHNIQUE: Imaging protocol: Computed tomography of the abdomen and pelvis without contrast. Radiation optimization: All CT scans at this facility use at least one of these dose optimization techniques: automated exposure control; mA and/or kV adjustment per patient size (includes targeted exams where dose is matched to clinical indication); or iterative reconstruction. COMPARISON: CR (ABDOMEN, ) 01/31/2020 8:41 AM RADIATION DOSE METRICS: Total DLP (mGy-cm): 735.72 FINDINGS: Liver: Normal. No mass. Gallbladder and bile ducts: There is a porcelain gallbladder. Multiple calcified stones are present in the gallbladder. The bile ducts are not dilated. Pancreas: Normal. No ductal dilation. Spleen: Normal. No splenomegaly. Adrenal glands: Normal. No mass. Kidneys and ureters: The kidneys are unremarkable with no hydronephrosis or renal stone. Stomach and bowel: Unremarkable. No obstruction. No mucosal thickening. Appendix: No evidence of appendicitis. Intraperitoneal space: Unremarkable. No free air. No significant fluid collection. Vasculature: There is calcification in the aorta and iliac arteries but there is no aneurysm. Lymph nodes: Unremarkable. No enlarged lymph nodes. Urinary bladder: Unremarkable as visualized. Reproductive: Unremarkable as visualized. Bones/joints: There is bilateral L5 spondylolysis with grade 1 spondylolisthesis at L5-S1. Degenerative changes are present in the lower lumbar facet joints with narrowing and hypertrophy.. Soft tissues: There is hazy infiltration with enlargement of the left labia. This may represent a cellulitis. No discrete fluid collection or subcutaneous emphysema is seen. Correlation with physical examination is advised. CT/CT kidney stone [id number] IMPRESSION: 1. There is is infiltration of the subcutaneous fat and enlargement of the left labia which may represent a cellulitis. No definite fluid collection is seen. Correlation with physical examination is advised. 2. Porcelain gallbladder, cholelithiasis. 3. No evidence of renal stone disease. 4. Bilateral L5 spondylolysis with grade 1 spondylolisthesis and degenerative changes in the facet joints. Radiation Dose CTDIVOL = (mGy): DLP = 735.72 (mGy-cm)
[2020-01-31 11:07] VITALS: BP 132/81; PULSE 96; RESP 18; O2SAT 97
[2020-01-31 12:09] VITALS: BP 132/81; PULSE 107; RESP 20; TEMP 36.8; O2SAT 96
== END 2020-01-31 12:12 | disposition home or self-care (01) ==
PROVIDERS: Emergency Provider Nurse Practitioner Family; Family Provider Internal Medicine
DX: N30.01 Acute cystitis with hematuria (principal); L03.818 Cellulitis of other sites; E11.9 Type 2 diabetes mellitus without complications; Z79.4 Long term (current) use of insulin; I10 Essential (primary) hypertension; F17.210 Nicotine dependence, cigarettes, uncomplicated
CPT/HCPCS: 12345; 36416; 71045; 74018; 74176; 80053; 81001; 82962; 83690; 85025; 96365; 99283; J0696; J7040

== ENCOUNTER 2021-06-21 16:27 | Emergency (ER) | payer OTHER, SELFPAY ==
[2021-06-21 16:34] VITALS: BP 114/85; PULSE 108; RESP 15; O2SAT 96; BMI 25.4
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
--- NOTE | 2021-06-21 16:42 | XRR_ITS ---
PROCEDURE INFORMATION: Exam: XR Chest Exam date and time: 06/21/2021 4:49 PM Age: 60 years old Clinical indication: Pain; Angina pectoris; Additional info: Chest pain TECHNIQUE: Imaging protocol: XR of the chest. Views: 2 views. COMPARISON: CR XR chest 1V portable [id number] 01/31/2020 8:41 AM FINDINGS: Lungs: Unremarkable. No consolidation. Pleural spaces: Unremarkable. No pleural effusion. No pneumothorax. Heart/Mediastinum: Unremarkable. No cardiomegaly. Bones/joints: Mild bilateral right greater than left rotator cuff calcific tendinitis. XR/XR chest 2V* [id number] IMPRESSION: No acute findings.
--- NOTE | 2021-06-21 16:42 | ECG_ITS ---
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 Measurements Intervals [place] Rate: 106 P: 67 WV: 145 QRS: 51 QRSD: 85 T: 54 QT: 323 QTc: 430 Interpretive Statements SINUS TACHYCARDIA ABNORMAL RHYTHM ECG Compared to ECG 02/25/2017 12:25:47 Sinus rhythm no longer present Electronically Signed On 06-21-2021 17:00:19 CDT by Nico Mckinney M.D. [id number]
[2021-06-21 17:09] VITALS: BP 114/85; RESP 22; O2SAT 95
[2021-06-21 17:21] LABS: Basophils # 0.1 10^3/uL (0.0-0.1); Basophils % 0.4 %; Eosinophils # 0.1 10^3/uL (0.0-0.8); Eosinophils % 0.7 %; Hematocrit 42.7 % (37.0-47.0); Hemoglobin 14.7 g/dL (11.5-15.3); Lymphocytes # 2.8 10^3/uL (0.8-4.8); Lymphocytes % 24.3 %; Mean Corpuscular HGB Conc 34.4 g/dL (30.0-36.0); Mean Corpuscular Hemoglobin 29.6 pg (28.0-34.0); Mean Corpuscular Volume 86.1 fl (81-99); Mean Platelet Volume 11.1 fL (7.4-10.4); Monocytes # 0.7 10^3/uL (0.2-0.9); Monocytes % 6.1 %; Neutrophils # 7.96 10^3/uL (1.8-7.7); Nucleated Red Blood Cells % 0 %; Platelet Count 263 10^3/cmm (130-400); Red Blood Count 4.96 10^6/uL (4.1-5.3); Red Cell Distribution Width 11.8 % (12.1-15.1); White Blood Count 11.7 10^3/uL (4.0-10.0)
[2021-06-21] MEDS: acetaminophen 500 mg Tablet PO (17:22)
[2021-06-21 17:40] LABS: Anion Gap 16.6 (5-19); Calcium 9.7 mg/dL (8.5-10.5); Carbon Dioxide 23 mmol/L (22-29); Chloride 102 mmol/L (98-107); Osmolality Calculated 294 mOsm/kg (285-295); Potassium 4.6 mmol/L (3.5-5.1); Sodium 137 mmol/L (136-145)
[2021-06-21 17:41] LABS: Troponin(5th) Baseline 10 ng/L (0-10)
[2021-06-21 17:42] LABS: Blood Urea Nitrogen 25 mg/dL (6-20); Glomerular Filtration Rate 50.8 mL/min (90-130); Glucose 206 mg/dL (65-115)
[2021-06-21 18:04] VITALS: BP 126/82; PULSE 96; RESP 19; O2SAT 96
== END 2021-06-21 18:05 | disposition home or self-care (01) ==
LOC: ER 16:47
PROVIDERS: Emergency Provider Emergency Medicine
DX: R07.9 Chest pain, unspecified (principal); F17.210 Nicotine dependence, cigarettes, uncomplicated; E11.9 Type 2 diabetes mellitus without complications; Z79.4 Long term (current) use of insulin; V89.2XXA Person injured in unspecified motor-vehicle accident, traffic, initial encounter
CPT/HCPCS: 71046; 80048; 84484; 85025; 93005; 99283

== ENCOUNTER → 2022-06-12 10:10 | Outpatient (BNVA) | payer OTHER, SELFPAY | PROVIDERS: PCP Family Medicine; Visit Provider Family Medicine | DX: I10 Essential (primary) hypertension (principal) | CPT/HCPCS: 85025 ==

== ENCOUNTER 2022-06-13 07:37 | Outpatient (CLI) | payer OTHER, SELFPAY ==
[2022-06-13 09:02] LABS: Basophils # 0.1 10^3/uL (0.0-0.1); Basophils % 0.6 %; Eosinophils # 0.1 10^3/uL (0.0-0.8); Eosinophils % 1.8 %; Hematocrit 44.5 % (37.0-47.0); Hemoglobin 15.1 g/dL (11.5-15.3); Lymphocytes # 1.9 10^3/uL (0.8-4.8); Lymphocytes % 24.3 %; Mean Corpuscular HGB Conc 33.9 g/dL (30.0-36.0); Mean Corpuscular Hemoglobin 30.1 pg (28.0-34.0); Mean Corpuscular Volume 88.8 fl (81-99); Mean Platelet Volume 10.9 fL (7.4-10.4); Monocytes # 0.5 10^3/uL (0.2-0.9); Neutrophils # 5.19 10^3/uL (1.8-7.7); Neutrophils % 66.7 %; Nucleated Red Blood Cells % 0 %; Platelet Count 252 10^3/cmm (130-400); Red Blood Count 5.01 10^6/uL (4.1-5.3); Red Cell Distribution Width 11.9 % (12.1-15.1); White Blood Count 7.8 10^3/uL (4.0-10.0)
[2022-06-13 09:13] LABS: Platelet Count 252 10^3/cmm (130-400)
[2022-06-13 09:23] LABS: INR 0.93 (0.8-1.2)
[2022-06-13 09:24] LABS: Fibrinogen 470 mg/dL (174-498); Partial Thromboplastin Time 26.5 SECONDS (23.9-36.7)
[2022-06-13 09:36] LABS: Chol HDL Ratio 6.31 mg/dL (0.0-4.40); Cholesterol 265 mg/dL (0-200); Free T4 Free Thyroxine 1.12 ng/dL (0.82-1.77); HDL Cholesterol 42 mg/dL (60-100); LDL Cholesterol Calculated 180 mg/dL (50-129); LDL HDL Ratio 4.29 RATIO (0.00-3.22); Thyroid Stimulating Hormone 0.63 uIU/mL (0.27-4.20); Triglycerides 217 mg/dL (0-150)
== END 2022-06-13 07:38 | disposition home or self-care (01) ==
LOC: LAB 07:38
PROVIDERS: PCP Family Medicine; Visit Provider Family Medicine
DX: I10 Essential (primary) hypertension (principal)
CPT/HCPCS: 36415; 80061; 84439; 84443; 85025; 85049; 85384; 85610; 85730

== ENCOUNTER → 2022-06-20 11:03 | Outpatient (BNVA) | payer OTHER, SELFPAY | PROVIDERS: PCP Family Medicine; Visit Provider Family Medicine | DX: E11.65 Type 2 diabetes mellitus with hyperglycemia (principal) | CPT/HCPCS: 80053; 83036 ==

== ENCOUNTER → 2023-03-29 10:02 | Outpatient (BNVA) | payer MEDICAID, SELFPAY | PROVIDERS: PCP Family Medicine; Visit Provider Family Medicine | DX: E11.65 Type 2 diabetes mellitus with hyperglycemia (principal) | CPT/HCPCS: 80053; 80061; 83036; 83721; 84439; 84443; 85025 ==

== ENCOUNTER 2023-04-15 10:29 | Outpatient (CLI) | payer MEDICAID, SELFPAY ==
--- NOTE | 2023-04-15 10:34 | XRR_ITS ---
PROCEDURE INFORMATION: Exam: XR Thoracic Spine Exam date and time: 04/15/2023 11:14 AM Age: 62 years old Clinical indication: Pain in thoracic spine; Additional info: T2-4 pain TECHNIQUE: Imaging protocol: Radiologic exam of the thoracic spine. Views: 3 views. COMPARISON: CR XR chest 2V* [id number] 06/21/2021 4:49 PM FINDINGS: Bones/joints: Mild disc space narrowing and spurring. The pedicles are intact. No acute fracture. Normal alignment. Soft tissues: The perivertebral soft tissues are normal. XR/XR thoracic spine 3V* [id number] IMPRESSION: No acute findings.
== END 2023-04-15 10:30 | disposition home or self-care (01) ==
LOC: RAD 10:31
PROVIDERS: PCP Family Medicine; Visit Provider Family Medicine
DX: M54.6 Pain in thoracic spine (principal)
CPT/HCPCS: 72072

== ENCOUNTER 2023-05-15 06:40 | Outpatient (CLI) | payer MEDICAID, SELFPAY ==
[2023-05-15 07:18] LABS: Estmated Average Glucose 223; Hemoglobin A1C 9.4 % (4.0-6.0)
== END 2023-05-15 06:41 | disposition home or self-care (01) ==
PROVIDERS: PCP Family Medicine; Visit Provider Family Medicine
DX: E11.65 Type 2 diabetes mellitus with hyperglycemia (principal)
CPT/HCPCS: 36415; 83036

== ENCOUNTER → 2023-08-08 11:12 | Outpatient (BNVA) | payer MEDICAID, SELFPAY | PROVIDERS: PCP Family Medicine; Visit Provider Family Medicine | DX: E11.65 Type 2 diabetes mellitus with hyperglycemia (principal) | CPT/HCPCS: 80053; 83036 ==

== ENCOUNTER → 2023-09-03 09:17 | Outpatient (BNVA) | payer MEDICAID, SELFPAY | PROVIDERS: PCP Family Medicine; Referring Provider Family Medicine; Visit Provider Physician Assistant | DX: M75.41 Impingement syndrome of right shoulder; M19.011 Primary osteoarthritis, right shoulder | CPT/HCPCS: 73030 ==

== ENCOUNTER 2023-11-28 08:13 | Outpatient (CLI) | payer MEDICAID, SELFPAY ==
--- NOTE | 2023-11-28 09:30 | MR_ITS ---
WS: [id number] MRI RIGHT SHOULDER NONCONTRAST TECHNIQUE: Sagittal T2, coronal T1, T2 and proton density imaging. Axial gradient PDE imaging. CLINICAL INFORMATION: right shoulder pain COMPARISON: None. FINDINGS: Images are graded by patient motion Moderate degenerative arthritis AC joint with downsloping acromion. Impingement distal supraspinatus. Supraspinatus is intact. Infraspinatus is intact. Normal teres minor. Chronic thinning of the subsca pularis tendon which appears intact. Biceps tendon intact within the bicipital groove. Intra-articula r biceps tendon is somewhat diminutive but appears intact. Moderate degenerative narrowing glenohumeral articulation. Normal bone marrow signal. No acute fractu res. Subchondral cystic change at the greater tuberosity. MR/MR shoulder RT wo con* [id number] IMPRESSION: Limited study due to motion. 1. Moderate degenerative arthritis AC joint with moderate narrowing of the sub acromial space. Impingement distal supraspinatus. 2. Rotator cuff appears intact. Mild chronic thinning of the subscapularis ten don. 3. Biceps tendon appears intact within the bicipital groove. 4. Diminutive but intact intra-articular biceps tendon. 5. Degenerative changes of the greater tuberosity. 6. Moderate degenerative narrowing of the glenohumeral articulation. 7. No other acute findings.
== END 2023-11-28 08:14 | disposition home or self-care (01) ==
LOC: RAD 08:14
PROVIDERS: PCP Family Medicine; Visit Provider Physician Assistant
DX: M19.011 Primary osteoarthritis, right shoulder (principal); M75.41 Impingement syndrome of right shoulder
CPT/HCPCS: 73221

== ENCOUNTER → 2023-12-09 11:43 | Outpatient (BNVA) | payer MEDICAID, SELFPAY | PROVIDERS: PCP Family Medicine; Visit Provider Family Medicine | DX: E11.65 Type 2 diabetes mellitus with hyperglycemia (principal) | CPT/HCPCS: 80053; 83036 ==

== ENCOUNTER 2024-03-11 07:31 | Day surgery (SDC) | payer MEDICAID, SELFPAY ==
[2024-03-11] VITALS (10 sets, daily range): BP systolic 105–162; BP diastolic 69–94; PULSE 80–103; RESP 13–21; TEMP 36.1–36.5; O2SAT 93–96
[2024-03-11] MEDS: sodium chloride 0.9% 1,000 ML 30 ML IV (08:08)
[2024-03-11] MEDS: acetaminophen 1,000 MG/100 ML PIGGYBACK 400 MG IV (08:09)
[2024-03-11] MEDS: ketorolac 30 mg/mL INJ IVP (08:11)
--- NOTE | 2024-03-11 08:50 | SUR.PREOP ---
0746 Rojas Lo RN approached and informed me and stated as patient began to take her jacket off, 2-3 bugs were noticed crawling from pt's jacket. 0748 EVELYN Springer,Jessica,Dr. Mcmahon and Dr Obrien notified. 2948 EVELYN Moore also notified
--- NOTE | 2024-03-11 08:53 | ANES.PREANE2 ---
Pre-Anesthetic Assessment Height/Weight: Height 4 ft 11 in Weight 135 lb Temp Pulse Resp BP Pulse Ox O2 Del Method 97.7 F 103 H 18 122/80 96 Room Air 03/11/24 07:51 03/11/24 07:51 03/11/24 07:51 03/11/24 07:51 03/11/24 07:51 03/11/24 07:51 Preop Diagnosis: biceps tendinitis of R shoulder Operation Date: 03/11/24 11:05 Proposed Procedures p Shoulder Arthroscopy(Right) - Arnol Mccurtain, DO s AC Joint Resection(Right) - Arnol Lisandro, DO s Subacromial Decompression(Right) - Arnol Mccurtain, DO s possible rotator cuff debridement versus repair(Right) - Arnol Lisandro, DO s possible biceps tenotomy versus tenodesis(Right) - Arnol Mccurtain, DO Was Beta Cody taken within 24 hours: N/A Was Clonidine taken within 24 hours: N/A Last intake: Intake Last Liquid Date 03/10/24 Last Liquid Time 22:00 Last Solid Date 03/10/24 Last Solid Time 22:00 Social Tobacco and No alcohol Exam alert, oriented x 3, clear to auscultation bilaterally and regular rate & rhythm Airway Submandibular: within normal limits Cervical ROM: within normal limits Mallampati: Class III Comments: Comments: Very poor dentition, only has a few teeth left, denies any loose Anesthetic Plan ASA status: 3 Anesthesia: General and Regional (specify below) Other: No prior issues with anesthesia NPO since yesterday Preoperative staff found bugs in patient's close and belongings, appear to be roaches. History of hypertension on amlodipine, losartan and hydrochlorothiazide Type 2 diabetes on insulin. Pre op BS 278, gave 10 units Insulin COPD, controlled with inhalers Prior EKG showing sinus tachycardia Plan for general anesthesia with peripheral nerve block Medications/Allergies Home Medications Medication Instructions Recorded Confirmed Last Taken Type alcohol swabs 1 pad topical DIRECTED #200 ea 03/29/23 03/11/24 03/10/24 Rx blood sugar diagnostic (Blood #200 ea 03/29/23 02/10/24 Unknown Rx Glucose Test strips) blood-glucose meter #1 ea 03/29/23 02/10/24 Unknown Rx lancets #200 ea 03/29/23 02/10/24 Unknown Rx diabeitc shoes with 3 inserts #1 ea 04/25/23 02/10/24 Unknown Rx pen needle, diabetic 30 gauge x #100 ea 06/07/23 03/11/24 Unknown Rx 16 (Pen Needle) gabapentin 300 mg capsule 300 mg PO DAILY #90 caps 11/29/23 03/11/24 03/10/24 Rx albuterol sulfate 90 mcg/actuation 1 inh inhalation QID PRN shortness 12/02/23 03/11/24 03/10/24 Rx aerosol inhaler of breath or wheezing #8.5 grams losartan 100 mg tablet 100 mg PO DAILY #90 tabs 12/02/23 03/11/24 03/10/24 Rx insulin glargine 100 unit/mL (3 50 unit (0.5 mL) SUBCUT QAM #15 mL 12/10/23 03/11/24 03/10/24 Rx mL) subcutaneous pen (Lantus Solostar U-100 Insulin) cetirizine 10 mg tablet (Zyrtec) 10 mg PO DAILY #90 tabs 01/29/24 03/11/24 03/10/24 Rx hydrochlorothiazide 12.5 mg tablet 12.5 mg PO QAM #90 tabs 01/29/24 03/11/24 03/10/24 Rx empagliflozin 25 mg tablet 25 mg PO QAM #90 tabs 02/10/24 03/11/24 03/10/24 Rx glipizide 10 mg tablet 10 mg PO BID #180 tabs 02/24/24 03/11/24 03/10/24 Rx amlodipine 5 mg tablet 5 mg PO BEDTIME 03/10/24 03/11/24 03/10/24 History atorvastatin 40 mg tablet 40 mg PO DAILY 03/10/24 03/11/24 03/10/24 History budesonide-formoterol HFA 160 1 inh inhalation DAILY 03/10/24 03/11/24 03/10/24 History mcg-4.5 mcg/actuation aerosol inhaler (Symbicort) hydrocodone 5 mg-acetaminophen 325 1 tab PO Q6H PRN pain 5 days #20 03/11/24 Unknown Rx mg tablet tabs ondansetron 4 mg disintegrating 4 mg PO Q8H PRN nausea and 03/11/24 Unknown Rx tablet vomiting 3 days #9 tabs Allergies Allergy/AdvReac Type Severity Reaction Status Date / Time methadone Allergy ADR-Vomitin Verified 03/10/24 10:38 g Current Medications Generic Name Dose Route Start Last Admin Trade Name Alvino PRN Reason Stop Dose Admin Sodium Chloride 1,000 mls @ 30 mls/hr 03/11/24 07:45 03/11/24 08:08 Sodium Chloride 0.9% IV 03/12/24 07:44 30 mls/hr .Q24H DEEPTI Administration PFSH Anesthesia Medical History Lower extremity edema Diabetic neuropathy GERD (gastroesophageal reflux disease) Neuropathy Tobacco abuse Asthma Without acute exacerbation, strongly encourage smoking cessation Hypertension Diabetes mellitus Surgical History H/O section x 3 History of appendectomy Family History Mother CAD (coronary artery disease) Diabetes Father Brain aneurysm Brother Cancer throat Brother Cancer lung Sister Cancer colon Other Hyperlipidemia Hypertension Lung disease Denies family history of Clotting disorder Dementia Psychiatric illness Chronic kidney disease (CKD) Anesthesia complication Bleeding disorder Stroke Social History Smoking and tobacco/nicotine status: current every day tobacco/nicotine user cigarettes [ Other cigarette details: 1PPD, >60PY] Alcohol intake: never Substance/Drug Use: never Lives independently: Yes Marital status: / Number of children: 3 Current occupational status: employed Current occupation: House keeper Special mel needs: No Agree to transfusion: Yes Data Anesthesia Cardiac Studies: No Data to Display
[2024-03-11 10:18] LABS: Glucose Point of Care 278 mg/dL (70-110)
[2024-03-11] MEDS: insulin regular-human 100 units/1 mL 10 UNIT IVP (10:20)
--- NOTE | 2024-03-11 10:36 | P.HP_ITS ---
Same Day Surgery H&P Indication for Procedure/HPI DATE OF PROCEDURE: March 11, 2024 CHIEF COMPLAINT/INDICATIONFOR SURGICAL PROCEDURE: Right shoulder AC joint arthritis, subacromial impingement, rotator cuff tendinopathy, biceps tendinitis PREOP DIAGNOSIS: Right shoulder AC joint arthritis, subacromial impingement, rotator cuff te PLANNED PROCEDURE: Operation Date: 03/11/24 11:05 Proposed Procedures p Shoulder Arthroscopy(Right) - Arnol Mcmahon DO s AC Joint Resection(Right) - Arnol Mcmahon DO s Subacromial Decompression(Right) - Arnol Mcmahon DO s possible rotator cuff debridement versus repair(Right) - Arnol Mcmahon DO s possible biceps tenotomy versus tenodesis(Right) - Arnol Mcmahon DO Medications/Allergies* Home Medications Medication Instructions Recorded Confirmed Type amlodipine 5 mg tablet 5 mg PO BEDTIME 03/10/24 03/11/24 History atorvastatin 40 mg tablet 40 mg PO DAILY 03/10/24 03/11/24 History budesonide-formoterol HFA 160 1 inh inhalation DAILY 03/10/24 03/11/24 History mcg-4.5 mcg/actuation aerosol inhaler (Symbicort) Allergies/Adverse Reactions Allergy/AdvReac Type Severity Reaction Status Date / Time methadone Allergy ADR-Vomitin Verified 03/10/24 10:38 g Current Medications: Generic Name Dose Route Start Last Admin Trade Name Freq PRN Reason Stop Dose Admin Sodium Chloride 1,000 mls @ 30 mls/hr 03/11/24 07:45 03/11/24 08:08 Sodium Chloride 0.9% IV 03/12/24 07:44 30 mls/hr .Q24H DEEPTI Administration Pertinent History/Comorbid Conditions* Medical History (Updated 02/15/24 @ 08:59 by Arnol Mcmahon DO) Lower extremity edema Diabetic neuropathy GERD (gastroesophageal reflux disease) Neuropathy Tobacco abuse Asthma Without acute exacerbation, strongly encourage smoking cessation Hypertension Diabetes mellitus Surgical History (Updated 03/03/19 @ 16:50 by Jason Varela MD) H/O section x 3 History of appendectomy Family History (Updated 06/12/22 @ 10:27 by Roberta Redding LPN) Father Diabetes Mother CAD (coronary artery disease) Mother Brain aneurysm Father Hyperlipidemia Lung disease Cancer Brother throat Brother lung Sister colon Hypertension Denies family history of Clotting disorder Dementia Psychiatric illness Chronic kidney disease (CKD) Anesthesia complication Bleeding disorder Stroke Social History Smoking and tobacco/nicotine status: current every day tobacco/nicotine user cigarettes [ Other cigarette details: 1PPD, >60PY] Alcohol intake: never Substance/Drug Use: never Lives independently: Yes Marital status: / Number of children: 3 Current occupational status: employed Current occupation: House keeper Special mel needs: No Agree to transfusion: Yes Pertinent Exam Findings alert, oriented x 3, operative site marked and procedure specific exam findings Please refer to detailed orthopedic examination on 01/27/2024: Right Shoulder -Tender to palpation-over AC joint, biceps tendon, lateral and posterior aspect of shoulder -TTP over upper trapezius -Range of motion-full active range of motion with pain at end range of motion -4+/5 strength on Bhavani's -Bhavani's test-positive -Speed's Test-positive -Gillespie's test-Positive -Beal impingement-positive -Empty can test-positive -Radial pulse 2+, normal cap refill under 2 seconds and patient can wiggle fingers. -Sensation to hand intact Recommendations Surgery/Procedure today Other Plans: Plan to proceed to the OR today for right shoulder diagnostic and surgical arthroscopy with AC joint resection, subacromial decompression and possible rotator cuff debridement versus repair, possible biceps tenotomy versus tenodesis. Patient's failed conservative treatment at this point time we detai led the ins and outs procedure the risk benefits complication alternatives of surgery and through shared decision-making elects proceed with surgical invention. All questions answered at this time. Coding Level of Care Code Acute Code for [facility] Anderson
[2024-03-11] MEDS: ceFAZolin 2,000 MG in sodium chloride 0.9% (plus) 50 ML 100 MG IV (10:59)
--- NOTE | 2024-03-11 11:29 | ANES.PROC ---
Anesthesia Procedures Procedure/Date: 03/11/24 Nerve Block ^: Nerve Block 1: Main Anesthesia: general anesthesia Time Out Performed: Yes Consent: requested by attending/covering physician and from patient Nerve block location: interscalene Anesthesia monitors applied: pulse oximetry, EKG, BP cuff and oxygen Nerve block position: supine Anesthetic Used: ropivicaine 0.5% Amount of anesthesia used (mL): 30 Ultrasound used to: recognize landmarks Nerve Stimulator Used?: Yes Interscalene/Femoral BLK: other needle (pjunk 4inch) Injection: neg aspiration of heme Patient Tolerated Procedure: well Complications: none
[2024-03-11] MEDS: EPINEPHrine 1 mg/mL INJ XX (12:06)
--- NOTE | 2024-03-11 12:51 | W.PM.BPON ---
Date of Procedure: [March 11, 2024] Surgeon: [Dr. Mcmahon DO] Paramedic Supervisor(s): [Emir chappell PA-C] Procedure(s) performed: [Right shoulder diagnostic and surgical arthroscopy Rotator cuff debridement AC joint resection Subacromial decompression Biceps tenodesis Labral debridement] Findings of the procedure(s): [Patient had right shoulder biceps tendinitis with tearing, AC joint arthritis, subacromial bursitis and rotator cuff and labral partial tearing. Procedure went well and as planned.] Estimated blood loss: [5 mL] Specimen(s) removed: [N/A] Post-operative diagnosis: Right shoulder biceps tendinitis with tearing, AC joint arthritis, subacromial bursitis, rotator cuff partial tearing and labral partial tearing. []
--- NOTE | 2024-03-11 12:57 | P.OP_ITS ---
Operative Report Date of procedure: March 11, 2024 Surgeon: Arnol Mcmahon DO Medicaid Plan Compliance Director: Emir Mcmahon PA-C: PA was necessary for assistance in this case with shoulder positioning to execute the procedure, assistance with instrumentation, as well as implant fixation when necessary, assist with wound closure and dressing application. Procedure: Preop Dx Right shoulder AC joint arthritis, subacromial impingement, rotator cuff tendinopathy, biceps tendinitis Post-op diagnosis: Right shoulder biceps tendinitis with tearing, AC joint arthritis, subacromial bursitis, rotator cuff partial tearing and labral partial tearing. Procedure done: Right?shoulder?diagnostic and surgical arthroscopy with rotator cuff debridement Right?shoulder?diagnostic and surgical arthroscopy biceps tenodesis Right?shoulder?diagnostic and surgical arthroscopy labral debridement Right?shoulder?diagnostic and surgical arthroscopy acromioclavicular joint resection Right?shoulder?diagnostic and surgical arthroscopy subacromial decompression (acromioplasty and bursectomy) Surgeon: Arnol Mcmahon DO Estimated blood loss: 5mL IV fluids: See anesthesia record Implants: Arthrex biceps tenodesis loop and tack kit Complications: None Condition: stable Disposition: same day Brief History: Patient been seen and worked up in the outpatient setting for?right?shoulder?pain.? Pt had an MRI which showed findings below.? Patient's failed conservative treatment and has weakness.? We talked about treatment options far as nonoperative and operative intervention..? We talked about risk benefits complication alternatives surgical nonsurgical treatment options.? Understanding risk of surgery pt agrees to proceed with surgical intervention for right shoulder diagnostic and surgical arthroscopy with AC joint resection, subacromial decompression and possible rotator cuff debridement versus repair, possible biceps tenotomy versus tenodesis .? All questions have been answered at this time.? Patient elects proceed with surgery and consent obtained in office. MR/MR shoulder RT wo con* [id number] IMPRESSION: Limited study due to motion. 1. Moderate degenerative arthritis AC joint with moderate narrowing of the subacromial space. Impingement distal supraspinatus. 2. Rotator cuff appears intact. Mild chronic thinning of the subscapularis tendon. 3. Biceps tendon appears intact within the bicipital groove. 4. Diminutive but intact intra-articular biceps tendon. 5. Degenerative changes of the greater tuberosity. 6. Moderate degenerative narrowing of the glenohumeral articulation. 7. No other acute findings. Procedure: Patient seen evaluated in the preoperative holding area.? Consent reviewed and signed with patient.? Once again reviewed patient's MRI results as well as? planned surgical intervention.? Correct extremity marked.? Patient seen evaluated by anesthesia department received regional anesthesia.? Once ready for surgery was taken back to the operative suite.? Patient then subsequently underwent anesthesia per the anesthesia department was transported onto the OR table.? Patient was then placed into a lateral decubitus position with a beanbag and was appropriately secured to the bed.? All bony prominences well-padded.? Patient then had the?right?upper extremity was then prepped and draped in sta ndard orthopedic fashion.? Patient received appropriate preoperative antibiotics.? Final timeout performed. The?right?upper extremity was then held in hanging from traction utilizing sterile technique.? Next started with standard diagnostic and surgical arthroscopy with posterior portal position introduced arthroscope into the glenohumeral joint.? Visualized the glenohumeral joint I then introduced a spinal needle within the rotator cuff interval to confirm appropriate anterior portal placement.? Once this was confirmed I then made my small incision and then introduced my arthroscopic shaver into the glenohumeral joint.? After flushing the joint fluid, was clearly evident patient had biceps tendon tearing as well as Superior labral tear. Patient had appreciable unstable biceps anchor most pronounced in the superior labrum. Given there appears to be healthy intra-articular tendon plan was for an intra-articular biceps tenodesis at the superior portion as it enters the intertubercular groove. Thermal wand introduced into the rotator interval. I then release of the rotator interval to have appropriate visualization and the ability to perform biceps tenodesis. At this point I established a purple passport cannula which was introduced. Next I performed an Arthrex loop and tack biceps tenodesis. Passer was then made around the tendon luggage tag stitch around and then thru the tendon and I then utilized a thermal wand to release the biceps tendon at the anchor to perform with tenotomy. I then loaded with suture onto an Arthrex 4.75 swivel lock suture anchor. A punch was then placed in appropriate position at the entry point into the intertubercular groove just superior to the subscapularis tendon. Punch was then introduced to the appropriate depth. The suture loaded on the swivel lock was then advanced held under appropriate tension and shoulder lock anchor was then advanced and had excellent fixation. Excess suture was then cut biceps tenodesis was complete. I then utilized a thermal wand to seal the edges of the superior labrum. Next I evaluated the subscapularis tendon which was intact and no evidence of tear. ?Next there was significant labral tearing at biceps anchor and circumferential.? ? I then subsequently utilized a a arthroscopic shaver and thermal wand to perform a labral debridement.? This point time I then visualized the glenohumeral joint.? 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 Axillary pouch was free of loose bodies from viewing the posterior portal.? Next a visualized the rotator cuff superiorly and there was found to be a small undersurface tearing of the supraspinatus tendonThis was roughly of only 10% of the undersurface articular side of the rotator cuff was subsequently utilized an arthroscopic shaver and gently debrided the rotator cuff. I utilized a spinal needle to hans this location.?? This completed my work within the glenohumeral joint all fluid was suctioned free of the joint.? ?Next I reintroduced the arthroscope posteriorly.? And went to the subacromial space.? I established my lateral working portal at the site of which my spinal needle was marking of the rotator cuff tear.? Thermal wand was then introduced laterally and then I subsequently performed extensive bursectomy of the subacromial space.? Patient had a large anterior bone spur.? At this point time I proceeded with my AC joint resection thermal wand was used and track to the anterior edge of the acromion and then tracked all the way to the AC joint.? Once identified the AC joint this was very arthritic in nature.? Thermal wand was placed anteriorly to establish appropriate plane for AC joint resection.? Once appropriate margins and anterior inferior and anterior capsule was released I then introduced arthroscopic shaver and a bur and performed AC joint resection of both the acromion to cope plane at the AC joint and a distal clavicle resection was then performed totaling 1 cm in size and was confirmed.? This completed my AC joint resection and I then introduced the arthroscopic shaver laterally while continuing to view posteriorly.? I then performed an acromioplasty to complete my subacromial decompression prior to further evaluating the rotator cuff.? This point in time I then subsequently utilized the arthroscopic shaver to complete the bursectomy and had direct visualization of the rotator cuff. The rotator cuff was found to be completely intact there is no evidence of full- thickness tear patient findings at this point time consistent with a 10% articular sided tear which was gently debrided to the intra-articular surface no need for any further debridement in the subacromial space on the articular side as the rotator cuff was intact. This completed my work. ?Next I then introduced the arthroscopic shaver posteriorly to complete my subacromial decompression appropriate coplane all the way up to the lateral edge of the acromion.? This completed the surgery.? All fluid was suctioned from the?shoulder.? All instruments were removed.? The lateral incision was then closed with nylon stitches.? As well as the portal sites closed with portal nylon stitches.? Xeroform 4 x 4's ABD and tape was then applied to the?right?shoulder?and was placed into a?shoulder?abduction pillow sling for biceps tenodesis protocol.? Patient was then awakened from anesthesia and then taken back to PACU in stable condition.? Patient tolerated procedure without any issues. Disposition: Patient taken back in stable condition recovering well.? Dressings on in place clean dry and intact.? Will be nonweightbearing to the?right?upper extremity.? Follow biceps tenodesis protocol.? Patient to follow-up with ortho in the office in 2 weeks.? Patient will receive appropriate discharge instruction as well as pain medication postoperatively.? All questions answered.? We will contact the office for any questions or concerns.
--- NOTE | 2024-03-11 12:57 | PM.PACU ---
PACU note Narrative: Patient is a 63-year-old female who just underwent a right shoulder diagnostic surgical arthroscopy. Patient transferred to PACU in stable condition. Pain is well controlled. shoulder Dressing on , dry and in place. Patient's operative arm is in a shoulder immobilizer. Patient is awake and alert and able to respond to my questions accordingly. Patient's fingers are warm with good perfusion. Normal cap refill under 2 seconds. Unable to assess further range of motion in arm due to sling. Sensation to hand intact. Exam: awake Disposition: discharged
--- NOTE | 2024-03-11 13:45 | ANE.PACU2 ---
Inpatient post-anesthesia follow up: Airway intact: Yes Vital signs: Temperature 97.0 F Pulse Rate 94 Respiratory Rate 18 Blood Pressure 147/70 Pulse Oximetry 94 Oxygen Delivery Me thod Room Air Oxygen Flow Rate Fraction of Inspir ed Oxygen Hydration adequate: Yes Nausea and vomiting: No Pain level: 1 Mental status: Baseline
== END 2024-03-11 13:45 | disposition home or self-care (01) ==
PROVIDERS: PCP Family Medicine; Visit Provider Student in an Organized Health Care Education/Training Program
PROC: (CPT 29805; principal; 2024-03-11 10:45)
PROC: 0RSG0ZZ Reposition Right Acromioclavicular Joint, Open Approach (ICD-10-PCS; CPT 23120; 2024-03-11 10:45)
PROC: (CPT 29826; 2024-03-11 10:45)
PROC: (CPT 29827; 2024-03-11 10:45)
PROC: (CPT 24310; 2024-03-11 10:45)
DX: M19.011 Primary osteoarthritis, right shoulder (principal); M75.21 Bicipital tendinitis, right shoulder; M75.51 Bursitis of right shoulder; M75.111 Incomplete rotator cuff tear or rupture of right shoulder, not specified as traumatic; I10 Essential (primary) hypertension; E11.40 Type 2 diabetes mellitus with diabetic neuropathy, unspecified; Z79.4 Long term (current) use of insulin; J44.9 Chronic obstructive pulmonary disease, unspecified; F17.210 Nicotine dependence, cigarettes, uncomplicated
CPT/HCPCS: 23120; 29827; 29828; 36416; 82962; C1713 ×2; J0131; J0171; J0690; J1100; J1815; J1885; J2405; J2704; J3010; J3490; J7030

== ENCOUNTER → 2024-05-11 15:38 | Outpatient (BNVA) | payer MEDICAID, SELFPAY | PROVIDERS: PCP Family Medicine; Visit Provider Family Medicine | DX: E11.65 Type 2 diabetes mellitus with hyperglycemia (principal); I10 Essential (primary) hypertension | CPT/HCPCS: 80053; 80061; 83036; 83721; 85025 ==

== ENCOUNTER → 2024-05-19 11:12 | Outpatient (BNVA) | payer MEDICAID, SELFPAY | PROVIDERS: PCP Family Medicine; Visit Provider Nurse Practitioner Family | DX: M47.892 Other spondylosis, cervical region (principal) | CPT/HCPCS: 72040 ==

== ENCOUNTER 2024-05-26 08:30 | Outpatient (CLI) | payer MEDICAID, SELFPAY ==
--- NOTE | 2024-05-26 09:30 | MR_ITS ---
WS: [id number] MRI CERVICAL SPINE NONCONTRAST TECHNIQUE: Sagittal T1, T2 and STIR imaging. Axial T2, gradient, and fiesta imaging. CLINICAL INFORMATION: M54.12 - Radiculopathy, cervical region COMPARISON: None. FINDINGS: Mild cervical curve. Cord signal is normal. C2-C3: Normal. C3-C4: Mild disc bulging. Shallow central protrusion. Mild facet arthropathy. Mild bilateral foraminal narrowing. C4-C5: Moderate facet arthropathy. Shallow central protrusion. Mild central canal stenosis. Mild bony foraminal narrowing. C5-C6: Disc osteophyte complex with slight indentation cervical cord. Mild central canal stenosis. Moderate bilateral bony foraminal narrowing. Mild facet arthropathy. C6-C7: LEFT eccentric disc osteophyte complex with moderate bilateral bony foraminal narrowing. Mild facet arthropathy. C7-T1: Disc osteophyte complex with endplate ridging. Moderate bilateral bony foraminal narrowing. Spinal canal is patent. Visualized brain stem structures: Normal. Prevertebral soft tissues: Normal. Numerous small thyroid nodules. MR/MR cervical spin wo con* [id number] IMPRESSION: Some images are limited due to patient motion on cervical curve. 1. Mild central canal stenosis C4-C5 and C5-C6. 2. Shallow RIGHT paracentral protrusion C3-C4. 3. Multilevel bony foraminal narrowing worse at bilateral C5-C6, bilateral C6- 7 and bilateral C7-T1. 4. Numerous small thyroid nodules.
== END 2024-05-26 08:31 | disposition home or self-care (01) ==
LOC: RAD 08:31
PROVIDERS: PCP Family Medicine; Visit Provider Nurse Practitioner Family
DX: M54.12 Radiculopathy, cervical region (principal); M48.02 Spinal stenosis, cervical region; E04.2 Nontoxic multinodular goiter; M43.8X2 Other specified deforming dorsopathies, cervical region; M50.31 Other cervical disc degeneration, high cervical region; M47.892 Other spondylosis, cervical region; M50.221 Other cervical disc displacement at C4-C5 level; M25.78 Osteophyte, vertebrae; R93.7 Abnormal findings on diagnostic imaging of other parts of musculoskeletal system; M48.03 Spinal stenosis, cervicothoracic region; G89.29 Other chronic pain; F17.210 Nicotine dependence, cigarettes, uncomplicated
CPT/HCPCS: 72141; 99213

== ENCOUNTER → 2024-06-09 07:08 | Outpatient (BNVA) | payer MEDICAID, SELFPAY | PROVIDERS: PCP Family Medicine; Referring Provider Dermatology; Visit Provider Podiatrist Foot & Ankle Surgery | DX: L60.1 Onycholysis (principal); E11.65 Type 2 diabetes mellitus with hyperglycemia; G62.9 Polyneuropathy, unspecified; L03.032 Cellulitis of left toe; Z79.4 Long term (current) use of insulin | CPT/HCPCS: 11730; 99214 ==

== ENCOUNTER → 2024-06-17 07:41 | Outpatient (BNVA) | payer MEDICAID, SELFPAY | PROVIDERS: PCP Family Medicine; Visit Provider Podiatrist Foot & Ankle Surgery | DX: E11.65 Type 2 diabetes mellitus with hyperglycemia (principal); L60.1 Onycholysis; G62.9 Polyneuropathy, unspecified; L03.818 Cellulitis of other sites; Z79.4 Long term (current) use of insulin | CPT/HCPCS: 99213 ==

== ENCOUNTER → 2024-08-11 09:35 | Outpatient (BNVA) | payer MEDICAID, SELFPAY | PROVIDERS: PCP Family Medicine; Visit Provider Podiatrist Foot & Ankle Surgery | DX: E11.65 Type 2 diabetes mellitus with hyperglycemia (principal); L60.3 Nail dystrophy; G62.9 Polyneuropathy, unspecified; L85.3 Xerosis cutis | CPT/HCPCS: 11721; 99213 ==

== ENCOUNTER → 2024-08-20 08:43 | Outpatient (BNVA) | payer MEDICAID, SELFPAY | PROVIDERS: PCP Family Medicine; Visit Provider Internal Medicine | DX: E11.65 Type 2 diabetes mellitus with hyperglycemia (principal); E11.40 Type 2 diabetes mellitus with diabetic neuropathy, unspecified; I10 Essential (primary) hypertension; E78.5 Hyperlipidemia, unspecified; M54.2 Cervicalgia | CPT/HCPCS: 36415; 72050; 80053; 80061; 82044; 83036; 83721; 99203; 99204 ==

== ENCOUNTER → 2024-09-04 08:58 | Outpatient (BNVA) | payer MEDICAID, SELFPAY | PROVIDERS: PCP Family Medicine; Visit Provider Internal Medicine | DX: E11.65 Type 2 diabetes mellitus with hyperglycemia (principal); I10 Essential (primary) hypertension; E78.5 Hyperlipidemia, unspecified; E11.40 Type 2 diabetes mellitus with diabetic neuropathy, unspecified; R07.9 Chest pain, unspecified; Z79.4 Long term (current) use of insulin | CPT/HCPCS: 99214 ==

== ENCOUNTER → 2024-10-14 12:20 | Outpatient (BNVA) | payer MEDICAID, SELFPAY | PROVIDERS: PCP Family Medicine; Visit Provider Internal Medicine | DX: R07.9 Chest pain, unspecified (principal); I10 Essential (primary) hypertension; E11.9 Type 2 diabetes mellitus without complications; Z79.4 Long term (current) use of insulin; Z79.84 Long term (current) use of oral hypoglycemic drugs; F17.210 Nicotine dependence, cigarettes, uncomplicated | CPT/HCPCS: 93005; 99204 ==

== ENCOUNTER → 2024-10-15 08:52 | Outpatient (BNVA) | payer MEDICAID, SELFPAY | PROVIDERS: PCP Family Medicine; Visit Provider Podiatrist Foot & Ankle Surgery | DX: E11.65 Type 2 diabetes mellitus with hyperglycemia (principal); L60.3 Nail dystrophy; E11.8 Type 2 diabetes mellitus with unspecified complications; G62.9 Polyneuropathy, unspecified; L85.3 Xerosis cutis; Z79.4 Long term (current) use of insulin | CPT/HCPCS: 11721; 99213 ==

== ENCOUNTER 2024-10-28 06:47 | Outpatient (CLI) | payer MEDICAID, SELFPAY ==
--- NOTE | 2024-10-28 | ECG_ITS ---
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 Interpretive Statements Lung unchanged pre/post procedure; Intraprocedure shortess of breath; Symptoms resoled by discharge PROCEDURE: At the baseline, the EKG revealed normal sinus rhythm with a normal ST Ts.. The baseline heart was 89 bpm with a blood pressue of 155/83 mm of Hg Lexiscan was infused over a period of 20 seconds. A total of 0.4 milligrams of Lexiscan was infused. The stress phase was continued for a total of 5 minutes. Heart rate at the end of the stress phase was 101 bpm with a blood pressure 117/60 mm of Hg. The EKG at the peak infusion revealed no significant changes. Sestamibi was injected 20 seconds after the Lexiscan infusion. Heart rate at the end of the recovery phase was 101 bpm with a blood pressure of 100/50 mm of Hg. CONCLUSION: 1. No significant EKG changes with the LexiScan infusion 2. No LexiScan induced chest pain or cardiac arrhythmia 3. Normal blood pressure and heart rate response 4. Sestamibi/sestamibi perfusion scan pending; see separate report. Electronically Signed On 10-31-2024 13:07:43 CDT by Maureen Scruggs M.D. [email or web address]
[2024-10-28 06:57] VITALS: BMI 26.2
--- NOTE | 2024-10-28 06:59 | NMCV_ITS ---
NM gucci perf SPECT r/s* [id number] Yessi Murry Age: 64 Gender: F : 1960 Exam Date: 10/28/2024 08:05 Ordering Phys: Tyshawn Owens M.D ([email or web address]) Technologist: MARGIE Morris Exam Location: [facility] Indications: CP STRESS TEST [facility] IMAGE PROTOCOL Rest/Stress 1 Lexiscan Day Radiopharmaceutical Dose (mCi) Administration Site Administered by Rest: Tc-99m 10.4 IV MARGIE Shaw Sestamibi Stress:Tc-99m 32.2 IV MARGIE Morris Sestamiwilian Rest: 28-Oct-2024 60 Discovery 630 Stress: 28-Oct-2024 30 Discovery 630 0.4mg Lexiscan. Supine position only as patient was unable to lay prone. SPECT RESULTS Technical Quality: Good Raw Data Analysis: Normal Image Corrections: No attenuation or motion correction applied Summed Stress Score: 0 Summed Rest Score: 0 Summed Difference Score: 0 PERFUSION FINDINGS Fairly uniform myocardial tracer uptake with no significant progression abnormalities. FUNCTIONAL RESULTS (calculated via Gated SPECT) Stress Image LV EF (%): 92 Stress EDV (mL):25 TID: 1 Stress ESV (mL):2 FUNCTIONAL FINDINGS: Segmental wall motion analysis revealing no gross wall motion abnormalities IMPRESSIONS 1. Myocardial perfusion imaging revealing uniform myocardial tracer uptake with no significant perfusion abnormalities 2. Normal LV ejection fraction 92%. 3. LV wall motion analysis revealing no gross wall motion abnormalities. 4. Normal LV volume Low probability for coronary ischemia, based on the above findings Dr Maureen Scruggs MD FACC (Electronically Signed) Final Date: 28 October 2024 13:34 S
[2024-10-28 09:02] VITALS: BP 133/84; PULSE 99
== END 2024-10-28 06:48 | disposition home or self-care (01) ==
LOC: CDL 06:49
PROVIDERS: PCP Family Medicine; Visit Provider Internal Medicine
DX: R07.9 Chest pain, unspecified (principal); R06.02 Shortness of breath
CPT/HCPCS: 36415; 78452; 93017; 96374; A9500; J2785

== ENCOUNTER 2024-11-13 06:36 | Outpatient (CLI) | payer MEDICAID, SELFPAY ==
--- NOTE | 2024-11-13 07:00 | USCV_ITS ---
Yessi Murry Age: 64 Gender: F : 1960 Exam Date: 11/13/2024 07:41 Ordering Phys: Tyshawn Owens M.D ([email or web address]) Technologist: Wyatt Manuel [place] [facility] [place]: chest pain, sob BP: 114 / 77 HR: 90 Rhythm: Sinus Technical Quality: Adequate MEASUREMENTS (Male / Female) Normal Values 2D ECHO LV Diastolic Diameter PLAX 3.7 cm 4.2 - 5.9 / 3.9 - 5.3 cm IVS Diastolic Thickness 0.9 cm 0.6 - 1.0 / 0.6 - 0.9 cm IVS Systolic Thickness 1.1 cm LVPW Diastolic Thickness 1.1 cm 0.6 - 1.0 / 0.6 - 0.9 cm LVPW Systolic Thickness 1.3 cm LVOT Diameter 2.0 cm LV Ejection Fraction 2D Teich 73.9 % LV Ejection Fraction MOD 4C 71.1 % LV Ejection Fraction MOD 2C 65.9 % LV Ejection Fraction 2C AL 66.1 % LA Diameter 3.2 cm RA Systolic Volume 4C AL 14.7 ml RA Systolic Volume 4C MOD 14.5 ml LA Sys Volume AL 22.5 cm cubed LA Sys Volume Index AL 14.1 cm cubed/m squared Aorta at Sinotubular Diameter 2.1 cm IVC Diameter 1.4 cm M-MODE LA Ao Ratio MM 1.1 AV Cusp Separation MM 1.0 cm DOPPLER AV Peak Velocity 99.3 cm/s LVOT Peak Velocity 91.0 cm/s AV Area Cont Eq vti 2.8 cm squared AV Area Cont Eq pk 2.9 cm squared MV Peak Velocity 107.0 cm/s MV Area PHT 8.2 cm squared Mitral E to A Ratio 0.8 TV Peak Velocity 241.5 cm/s TR Peak Velocity 260.0 cm/s TR Peak Gradient 27.0 mmHg TR Mean Velocity 206.0 cm/s TR Mean Gradient 17.9 mmHg TR Velocity Time Integral 61.9 cm PV Peak Velocity 95.3 cm/s RV Ejection Time 0.2 s FINDINGS Left Ventricle Normal left ventricular size and systolic function, EF 60-65%. No regional wall motion abnormalities. Grade 1 diastolic dysfunction Right Ventricle Normal in size and function Right Atrium Normal right atrial size. Left Atrium Normal left atrial size. Mitral Valve Normal valve. Mild mitral regurgitation Aortic Valve Grossly normal. No significant stenosis or regurgitation Tricuspid Valve Insufficient TR jet to calculate RVSP Pulmonic Valve Not well visualized Pericardium Normal Aorta Normal in size IVC Appears to be normal CONCLUSIONS LV systolic function is normal with EF of 60-65% Grade 1 diastolic dysfunction Mild mitral regurgitation No comparison studies are available. Tyshawn Owens MD (Electronically Signed) Final Date: 18 November 2024 10:43 S
== END 2024-11-13 06:37 | disposition home or self-care (01) ==
LOC: RAD 06:37
PROVIDERS: PCP Family Medicine; Visit Provider Internal Medicine
DX: R07.9 Chest pain, unspecified (principal); R06.02 Shortness of breath; I51.89 Other ill-defined heart diseases; I34.1 Nonrheumatic mitral (valve) prolapse; I36.1 Nonrheumatic tricuspid (valve) insufficiency
CPT/HCPCS: 93306

== ENCOUNTER → 2024-11-26 08:40 | Outpatient (BNVA) | payer MEDICAID, SELFPAY | PROVIDERS: PCP Family Medicine; Visit Provider Internal Medicine | DX: E11.65 Type 2 diabetes mellitus with hyperglycemia (principal); E11.40 Type 2 diabetes mellitus with diabetic neuropathy, unspecified; I10 Essential (primary) hypertension; E78.5 Hyperlipidemia, unspecified; R07.9 Chest pain, unspecified; Z79.4 Long term (current) use of insulin | CPT/HCPCS: 99214 ==

== ENCOUNTER 2025-02-24 10:41 | Outpatient (CLI) | payer MEDICAID, SELFPAY ==
[2025-02-24 11:37] LABS: Alanine Aminotransferase 11 U/L (0-33); Albumin Level 3.7 g/dL (3.5-5.2); Alkaline Phosphatase 124 U/L (35-105); Anion Gap 15.7 (5-19); Aspartate Amino Transferase 9 U/L (0-32); Blood Urea Nitrogen 34 mg/dL (8-23); Calcium 9.0 mg/dL (8.5-10.5); Carbon Dioxide 24 mmol/L (22-29); Chloride 98 mmol/L (98-107); Cholesterol 238 mg/dL (0-200); Globulin 3.2 g/dL (1.3-4.6); Glucose 453 mg/dL (65-115); HDL Cholesterol 36 mg/dL (60-100); Osmolality Calculated 303 mOsm/kg (285-295); Potassium 4.7 mmol/L (3.5-5.1); Sodium 133 mmol/L (136-145); Total Protein 6.9 g/dL (6.6-8.7); Triglycerides 706 mg/dL (0-150)
[2025-02-24 11:40] LABS: Creatinine Urine, Random 46 mg/dL (28-217)
[2025-02-24 11:41] LABS: Estmated Average Glucose 269; Hemoglobin A1C 11.0 % (4.0-6.0)
[2025-02-24 11:59] LABS: Microalbum Creatinine Ratio Ur 3543 mg/dL (0-20)
== END 2025-02-24 10:42 | disposition home or self-care (01) ==
LOC: LAB 10:42
PROVIDERS: PCP Family Medicine; Visit Provider Internal Medicine
DX: E11.65 Type 2 diabetes mellitus with hyperglycemia (principal)
CPT/HCPCS: 80053; 80061; 82044; 83036; 83721